=== PATIENT | female | born 1985 | race Caucasian/White ===

== ENCOUNTER 2017-08-23 17:58 | Inpatient (IN) ==
[2017-08-23 18:27] LABS: Bilirubin,Urine Small (Negative); Blood,Urine Large (Negative); Clarity,Urine Turbid (Clear); Glucose,Urine (UA) Normal (Normal); Ketones,Urine 40 mg/dL (Negative); Leukocyte Esterase,Urine Moderate (Negative); Nitrite,Urine Positive (Negative); PH,Urine 5.5 pH Units (5.0-8.0); Protein,Urine 100 mg/dL (Neg-Trace); Specific Gravity,Urine 1.022 (1.010-1.025); Urobilinogen,Urine Normal (Normal)
[2017-08-23 18:33] LABS: Bacteria,Urine Many per hpf (None-Few); RBC,Urine TNTC per hpf (0-3); Squamous Epithelial Cell,Urine Many per lpf (None-Few); WBC,Urine TNTC per hpf (0-3)
[2017-08-23 18:35] LABS: Color,Urine Dark Yellow (Yellow)
[2017-08-23 18:48] LABS: Mucus,Urine Moderate (Few)
[2017-08-23 18:55] LABS: Basophils % 0.2 %; Mean Platelet Volume 9.8 fL (9.4-12.4)
[2017-08-23 18:56] LABS: Basophils # 0.1 K/mcL (0.0-0.2); Hematocrit 39.6 % (35.3-44.9); Hemoglobin 13.2 g/dL (11.5-15.4); Immature Granulocytes % 0.8 % (0-4); Lymphocytes # 1.1 K/mcL (0.6-4.6); Lymphocytes % 3.9 %; Mean Corpuscular HGB Conc 33.3 g/dL (31.6-35.5); Monocytes % 7.1 %; Platelet Count 250 K/mcL (140-400); Red Cell Distribution Width 12.3 % (11.5-14.5)
[2017-08-23] MEDS ORDERED: 0.9 % Sodium Chloride 1,000 ML IVC ONE (19:07)
[2017-08-23 19:23] LABS: Alanine Aminotransferase 21 Units/L (7-52); Albumin 4.1 g/dL (3.5-5.7); Albumin/Globulin Ratio 1.2 (1.1-2.2); Alkaline Phosphatase 75 Units/L (34-104); Amylase 17 Units/L (29-103); Aspartate Amino Transferase 16 Units/L (13-39); BUN/Creatinine Ratio 15 (6-26); Bilirubin,Direct 0.4 mg/dL (0.0-0.2); Bilirubin,Indirect 0.7 mg/dL (0.0-1.2); Bilirubin,Total 1.1 mg/dL (0.3-1.0); Blood Urea Nitrogen 15 mg/dL (6-20); Calcium 9.7 mg/dL (8.6-10.3); Carbon Dioxide 22 mEq/L (23-29); Chloride 103 mEq/L (98-107); Globulin 3.3 g/dL (2.4-3.5); Glucose 125 mg/dL (70-105); Lipase 10 Units/L (11-82); Osmolality,Calculated 280 (280-300); Sodium 134 mEq/L (136-145); Total Protein 7.4 g/dL (6.4-8.9); eGFR For African Americans > 60 (> 60); eGFR For Non-African Americans > 60 (> 60)
[2017-08-23] MEDS ORDERED: cefTRIAXone 1,000 MG in Water for inj. (sterile) 20 ML 10 ML IVP ONE (19:35)
--- NOTE | 2017-08-23 19:39 | Emergency Department Note ---
Disposition Clinical Impression: Pyelonephritis Disposition: Admitted As Inpatient Condition: Fair Time of Disposition: 21:39 Abdominal Pain HPI - General Chief Complaint: ED Abdominal Pain Stated Complaint: ABD PAIN Time Seen by Provider: 08/23/17 18:52 Source: patient Mode of arrival: ambulatory Limitations: no limitations Nursing Notes Reviewed: Yes Vital Signs Reviewed: Yes - History of Present Illness HPI Narrative: Patient is a 31-year-old female who presents to [facility] ED with chief complaint of left-sided flank pain and abdominal pain. States her symptoms started yesterday evening. States she has had a history of kidney stones in the past and they have all been able to pass on their own. States she did spike a fever. Denies any difficulty with urination. Has had some nausea with an episode of vomiting. No chest pain, difficulty breathing, problems with urination or bowel movements. Patient is sexually active and states her and her are trying to get . States she is not due for a menstrual period for another 5 days. Pt Subjective Complaint: abdominal pain, flank pain Onset (ago): hour(s) Consistency: Worsening Location: L flank Pain Severity: severe Pain Scale: 8 Quality: aching Radiation: none Migration to: no migration - Related Data Home Medications Medication Instructions Recorded Confirmed Tek595/Iron Car/FA/Om3/Dha/Epa 1 each PO DAILY 08/23/17 08/23/17 [One-A-Day 1 Dha Sfgl] Allergies Allergy/AdvReac Type Severity Reaction Status Date / Time No Known Allergies Allergy Verified 05/27/15 10:22 All systems ED: reviewed and negative except as stated. Abdominal Pain PMH - Past Medical History Medical history: Reports: kidney stones, migraine Female Surgical History: Reports: no surgical history Psychiatric history: Reports: no psych history - Social History Smoking status: Never smoker Alcohol use: Reports: rarely Drug use: Reports: none Physical Exam - General Limitations: no limitations General appearance: alert - Head Head exam: atraumatic, normocephalic, normal inspection - Eye Eye exam: Present: normal appearance, EOMI - ENT ENT exam: normal exam, normal oropharynx, mucous membranes moist - Neck Neck exam: Present: normal inspection, full ROM, trachea midline - Chest Chest inspection: Present: normal inspection, symmetric chest wall rise - Respiratory Respiratory exam: Present: normal lung sounds bilaterally - Cardiovascular Cardiovascular exam: Present: normal rhythm, tachycardia - Abdominal Exam Abdominal exam: Present: soft, tenderness Abdominal tenderness: Present: LLQ, moderate - Extremities Exam Extremities exam: Present: normal inspection, full ROM. Absent: tenderness, pedal edema - Back Exam Back exam: Present: normal inspection, full ROM, CVA tenderness (L) - Neurological Exam Neurological exam: Present: alert, oriented X3 - Psychiatric Psychiatric exam: Present: normal affect, normal mood - Skin Skin exam: Present: warm, dry, intact, normal color Course Course Narrative: Patient seen and examined. Patient with left-sided and left flank pain. History of renal stones. We will get basic lab work, urine analysis, urine . We ended up ordering a serum to make sure there were no signs of since she would be very early on. It was negative. CT abdomen and pelvis ordered without contrast. - Reevaluation(s) Reevaluation #1: Urinalysis shows urinary tract infection. Urine analysis shows signs of a recently passed stone. She also has a large renal stone that I measured as 18 x [address] scan. It is located in the renal pelvis and is not obstructing at this time. Patient's white blood cell count is 20,000. We will continue fluid and antibiotics and admit. Discussed with patient and family members were in agreement. Time: 21:29 Reevaluation #2: Discussed with hospitalist who has accepted patient for admission. He would like a set of blood cultures and a lactate ordered. This has been added. Time: 21:39 Vital Signs Temperature 99.8 F H 08/23/17 18:04 Pulse Rate 128 08/23/17 18:04 Respiratory Rate 22 08/23/17 18:04 Blood Pressure 100/69 08/23/17 18:04 O2 Sat by Pulse Oximetry 96 08/23/17 18:04 Temperature 99.1 F 08/23/17 22:02 Pulse Rate 128 08/23/17 18:04 Respiratory Rate 20 08/23/17 22:02 Blood Pressure 108/65 08/23/17 22:02 O2 Sat by Pulse Oximetry 96 08/23/17 18:04 Oxygen Delivery Oxygen Delivery Room Air Abdominal Pain - Medical Records Medical records reviewed: Yes I reviewed the patient's medical records. - Lab Data Lab results reviewed: Yes I reviewed the patient's lab results. Result diagrams: 08/23/17 18:09 08/23/17 18:09 Lab Results 08/23/17 08/23/17 08/23/17 Range/Units 18:04 18:09 18:09 WBC 28.4 H (4.3-11.1) K/mcL RBC 4.40 (3.82-4.97) M/mcL Hgb 13.2 (11.5-15.4) g/dL Hct 39.6 (35.3-44.9) % MCV 90.0 (83.0-100.0) fL MCH 30.0 (28.0-33.3) pg MCHC 33.3 (31.6-35.5) g/dL RDW 12.3 (11.5-14.5) % Plt Count 250 (140-400) K/mcL MPV 9.8 (9.4-12.4) fL Immature Gran % 0.8 (0-4) % Seg Neutrophils % 88.0 % Lymphocytes % 3.9 % Monocytes % 7.1 % Eosinophils % 0.0 % Basophils % 0.2 % Neutrophils # 25.0 H (1.6-8.9) K/mcL Lymphocytes # 1.1 (0.6-4.6) K/mcL Monocytes # 2.0 H (0.0-1.3) K/mcL Eosinophils # 0.0 (0.0-0.6) K/mcL Basophils # 0.1 (0.0-0.2) K/mcL Reactive Lymphocytes Present A (Not Present) Toxic Granulation Present A (Not Present) Platelet Estimate Normal (Normal) Sodium 134 L (136-145) mEq/L Potassium 4.0 (3.5-5.1) mEq/L Chloride 103 (98-107) mEq/L Carbon Dioxide 22 L (23-29) mEq/L BUN 15 (6-20) mg/dL Creatinine 1.01 (0.60-1.20) mg/dL Est GFR ( Amer) > 60 (> 60) Est GFR (Non-Af Amer) > 60 (> 60) BUN/Creatinine Ratio 15 (6-26) Glucose 125 H (70-105) mg/dL Calculated Osmolality 280 (280-300) Calcium 9.7 (8.6-10.3) mg/dL Total Bilirubin 1.1 H (0.3-1.0) mg/dL Direct Bilirubin 0.4 H (0.0-0.2) mg/dL Indirect Bilirubin 0.7 (0.0-1.2) mg/dL AST 16 (13-39) Units/L ALT 21 (7-52) Units/L Alkaline Phosphatase 75 (34-104) Units/L Serum Total Protein 7.4 (6.4-8.9) g/dL Albumin 4.1 (3.5-5.7) g/dL Globulin 3.3 (2.4-3.5) g/dL Albumin/Globulin Ratio 1.2 (1.1-2.2) Amylase 17 L (29-103) Units/L Lipase 10 L (11-82) Units/L Serum , Qual (Negative) Urine Color Dark Yellow (Yellow) Urine Clarity Turbid A (Clear) Urine pH 5.5 (5.0-8.0) pH Units Ur Specific [place] 1.022 (1.010-1.025) Urine Protein 100 H (Neg-Trace) mg/dL Urine Glucose (UA) Normal (Normal) mg/dL Urine Ketones 40 H (Negative) mg/dL Urine Blood Large H (Negative) Urine Nitrite Positive A (Negative) Urine Bilirubin Small H (Negative) Urine Urobilinogen Normal (Normal) mg/dL Ur Leukocyte Esterase Moderate H (Negative) Urine Microscopic RBC TNTC H (0-3) per hpf Urine Microscopic WBC TNTC H (0-3) per hpf Ur Squamous Epith Cells Many H (None-Few) per lpf Urine Bacteria Many H (None-Few) per hpf Urine Mucus Moderate H (Few) Ur Culture Indicated? NO. (NO) 08/23/17 Range/Units 19:21 WBC (4.3-11.1) K/mcL RBC (3.82-4.97) M/mcL Hgb (11.5-15.4) g/dL Hct (35.3-44.9) % MCV (83.0-100.0) fL MCH (28.0-33.3) pg MCHC (31.6-35.5) g/dL RDW (11.5-14.5) % Plt Count (140-400) K/mcL MPV (9.4-12.4) fL Immature Gran % (0-4) % Seg Neutrophils % % Lymphocytes % % Monocytes % % Eosinophils % % Basophils % % Neutrophils # (1.6-8.9) K/mcL Lymphocytes # (0.6-4.6) K/mcL Monocytes # (0.0-1.3) K/mcL Eosinophils # (0.0-0.6) K/mcL Basophils # (0.0-0.2) K/mcL Reactive Lymphocytes (Not Present) Toxic Granulation (Not Present) Platelet Estimate (Normal) Sodium (136-145) mEq/L Potassium (3.5-5.1) mEq/L Chloride (98-107) mEq/L Carbon Dioxide (23-29) mEq/L BUN (6-20) mg/dL Creatinine (0.60-1.20) mg/dL Est GFR ( Amer) (> 60) Est GFR (Non-Af Amer) (> 60) BUN/Creatinine Ratio (6-26) Glucose (70-105) mg/dL Calculated Osmolality (280-300) Calcium (8.6-10.3) mg/dL Total Bilirubin (0.3-1.0) mg/dL Direct Bilirubin (0.0-0.2) mg/dL Indirect Bilirubin (0.0-1.2) mg/dL AST (13-39) Units/L ALT (7-52) Units/L Alkaline Phosphatase (34-104) Units/L Serum Total Protein (6.4-8.9) g/dL Albumin (3.5-5.7) g/dL Globulin (2.4-3.5) g/dL Albumin/Globulin Ratio (1.1-2.2) Amylase (29-103) Units/L Lipase (11-82) Units/L Serum , Qual Negative (Negative) Urine Color (Yellow) Urine Clarity (Clear) Urine pH (5.0-8.0) pH Units Ur Specific [place] (1.010-1.025) Urine Protein (Neg-Trace) mg/dL Urine Glucose (UA) (Normal) mg/dL Urine Ketones (Negative) mg/dL Urine Blood (Negative) Urine Nitrite (Negative) Urine Bilirubin (Negative) Urine Urobilinogen (Normal) mg/dL Ur Leukocyte Esterase (Negative) Urine Microscopic RBC (0-3) per hpf Urine Microscopic WBC (0-3) per hpf Ur Squamous Epith Cells (None-Few) per lpf Urine Bacteria (None-Few) per hpf Urine Mucus (Few) Ur Culture Indicated? (NO) - Radiology Data Radiology results reviewed: Yes I reviewed the patient's radiology results. Abdomen/Pelvis CT 08/23/17 20:09 IMPRESSION: Mild left-sided hydronephrosis with asymmetric enlargement of the left kidney and surrounding inflammatory change. No obstructing stone detected. Differential diagnosis includes a recently passed stone. Superimposed pyelonephritis not excluded. Trace pelvic free fluid with suggestion of a cyst in the left ovary. D/ / Adryan Love MD / Adryan Love MD Interpreting Provider: Adryan Love MD Attestation Statement - Attestation Attestation: I examined this patient and my medical decision-making was reviewed with the Resident Physician, Dr. Musa. I agree with the documented findings, disposition and treatment plan as described except to the extent set forth below. Patient is a 31-year-old white female with a history of prior kidney stones who presents to the emergency department today with a symptoms of left flank pain with left lower quadrant abdominal pain associated with nausea and vomiting and reported fevers at home that began last night. Patient denies any urinary symptoms and no upper respiratory symptoms. Patient denies any EXPERIMENTAL MECHANIC symptoms vaginal discharge or abnormal vaginal bleeding. I agree with pt's Pe findings as documented. Patient was tachycardic on arrival. Patient was started on IV fluids, pain meds and antiemetics, laboratory values were drawn and sent including urine cultures and she was sent for CT scanning to rule out obstructive stone. Patient with significantly elevation in white count with left shift, urinalysis shows urinary tract infection. Patient's vital signs improved following IV fluid administration and symptoms improved with medication. CT scan shows changes around the left kidney consistent with acute pyelonephritis no currently passing stone but does have a large renal stone in the left kidney. Results were discussed with the patient and patient agrees to admission to the hospital for ongoing IV fluids and antibiotic therapy. IV antibiotics were initiated in the ED and patient remained hemodynamically stable throughout her ED course.
[2017-08-23 19:42] LABS: Toxic Granulation Present (Not Present)
[2017-08-23 19:43] LABS: Platelet Estimate Normal (Normal); Reactive Lymphocytes Present (Not Present)
[2017-08-23] MEDS ORDERED: Ketorolac 15 MG/ML VIAL IVP ONE (20:09)
[2017-08-23] MEDS ORDERED: Naloxone 0.4 MG/ML INJ IVP PRN (21:41)
[2017-08-23] MEDS ORDERED: Acetaminophen 325 MG TABLET PO PRN (21:41)
[2017-08-23] MEDS ORDERED: *HR* HYDROcodone/Acet 5/325 mg TABLET PO PRN (21:41)
--- NOTE | 2017-08-23 22:08 | Internal Med History&Physical ---
Date of Encounter: 08/23/17 Time of Encounter: 22:05 Internal Medicine - H&P: HPI Chief complaint: Abdominal pain Admitted From: Emergency Dept Plans for Post Hospital Care: Home (Abdominal pain) History of present illness: Ms. Cortés is a 31 year old female who has no past medical history who presents to [facility] ED with chief complaint of left-sided flank pain and abdominal pain. She also reports nausea vomiting since yesterday night. She had fever at home up to 102.9. She complained of left flank pain throughout the day. Upon presentation to the emergency department she was tachycardic and borderline hypotensive. UA was positive. She had leukocytosis. Imaging studies showed mild left-sided hydronephrosis with asymmetric enlargement of the left kidney and surrounding inflammatory changes. This was suspected to have been findings consistent with a recently passed stone versus pyelonephritis. The patient also has a large stone in the left renal pelvis although dimensions of this are not documented. I spoke to the ER staff who measured to be 18 mm x 11 mm. The patient denies any headache, blurry vision, chest pain, shortness of breath, constipation, diarrhea, neurological symptoms. Patient was given IV fluids and ceftriaxone in the ED. She received Toradol as well. Past Med Surg Social Fam HX - Past Medical History Medical history: kidney stones, migraine Psychiatric history: no psych history - Social History Smoking Status: Never smoker Smokeless Tobacco Status: No Alcohol use: rarely Drug use: none Internal Medicine - H&P: Meds Hpt033/Iron Car/FA/Om3/Dha/Epa [One-A-Day 1 Dha Sfgl] 1 each PO DAILY 08/23/17 [History] 3 Allergy/AdvReac Type Severity Reaction Status Date / Time No Known Allergies Allergy Verified 05/27/15 10:22 All Systems PM: A 10-system review of systems was performed and is negative for pertinent findings except as documented above in the HPI. Review of systems: All systems reviewed are negative except as mentioned above - Constitutional Vitals: Temp Pulse Resp BP Pulse Ox 99.1 F 128 20 108/65 96 08/23/17 22:02 08/23/17 18:04 08/23/17 22:02 08/23/17 22:02 08/23/17 18:04 Exam: GEN: NAD HEENT: AT, NC, No cyanosis, oral mucosa is moist, No JVD Lymphatics: No lymphadenoapthy Eyes: Extrocular muscles intact, anicteric CVS:RRR. S1, S2, No m/r/g RESP: CTAB ABD: Soft, NT, ND, +BS EXT: No edema, No rashes, 2+ DP. Left CVA tenderness NEURO: Nonfocal, CN II-XII intact, No focal motor or sensory deficits Psych: Cooperative, Not anxious or depressed Internal Med - H&P Results - Labs CBC & Chem 7: 08/23/17 18:09 08/23/17 18:09 - Assessment and plan (1) Kidney stone Current Visit: Yes Status: Acute Assessment and plan: Pain control. IV fluid. Consult urology. (2) Pyelonephritis Current Visit: Yes Status: Acute Assessment and plan: Continue ceftriaxone for now. Unfortunately blood cultures were collected after antibiotics. Check lactic acid. Continue IV fluids. Follow up on urine cultures. (3) DVT prophylaxis Current Visit: Yes Status: Acute Assessment and plan: Heparin subcutaneous - Time Spent With Patient Total time spent is greater than 50% in coordination of care (as documented) at patient's floor/unit and/or counseling patient:
[2017-08-23] MEDS ORDERED: Ondansetron 4 MG/2 ML VIAL IVP PRN (22:34)
[2017-08-23] MEDS: *HR* Heparin 5,000 UNIT/ML VIAL SQ SCH (22:40)
[2017-08-23] MEDS: 0.9 % Sodium Chloride 1,000 ML IVC SCH (22:40)
[2017-08-24] MEDS: *HR* Heparin 5,000 UNIT/ML VIAL SQ SCH ×3 (05:14→21:35)
[2017-08-24] MEDS: 0.9 % Sodium Chloride 1,000 ML IVC SCH ×3 (05:24→21:38)
[2017-08-24 06:13] LABS: Basophils # 0.1 K/mcL (0.0-0.2); Basophils % 0.2 %; Hematocrit 33.7 % (35.3-44.9); Lymphocytes # 1.3 K/mcL (0.6-4.6); Lymphocytes % 6.1 %; Mean Corpuscular HGB Conc 32.9 g/dL (31.6-35.5); Mean Corpuscular Hemoglobin 30.1 pg (28.0-33.3); Mean Corpuscular Volume 91.3 fL (83.0-100.0); Monocytes # 1.5 K/mcL (0.0-1.3); Monocytes % 6.7 %; Neutrophils # 18.6 K/mcL (1.6-8.9); Platelet Count 183 K/mcL (140-400); Red Blood Count 3.69 M/mcL (3.82-4.97); Red Cell Distribution Width 12.2 % (11.5-14.5)
[2017-08-24 06:21] LABS: BUN/Creatinine Ratio 18 (6-26); Blood Urea Nitrogen 15 mg/dL (6-20); Calcium 8.3 mg/dL (8.6-10.3); Carbon Dioxide 20 mEq/L (23-29); Chloride 111 mEq/L (98-107); Glucose 98 mg/dL (70-105); Magnesium 1.7 mg/dL (1.6-2.6); Osmolality,Calculated 283 (280-300); Potassium 3.2 mEq/L (3.5-5.1); Sodium 136 mEq/L (136-145); eGFR For African Americans > 60 (> 60); eGFR For Non-African Americans > 60 (> 60)
[2017-08-24 06:23] LABS: Hemoglobin 11.1 g/dL (11.5-15.4)
--- NOTE | 2017-08-24 07:07 | Urology - Consult Note ---
Date of Encounter: 08/24/17 Time of Encounter: 07:05 - Assessment and Plan (1) Kidney stone Current Visit: Yes Status: Acute Assessment and plan: 31-year-old woman with a left renal stone, hydronephrosis, and pyelonephritis was admitted for IV antibiotic. I reviewed the CT scan with her. I recommend proceeding with a cystoscopy and left ureteral stent placement. I informed her of the risks of the surgery which included but are not limited to bleeding, infection, injury to other structures, need for further procedures, need for nephrostomy tube, need for open repair, stent irritation, and the risk of anesthesia. She is willing to proceed. (2) Pyelonephritis Current Visit: Yes Status: Acute Urology CN:HPI Consult date: 08/24/17 Reason for consult Urology: Other (uti, nephrolithiasis) History of present illness: 31-year-old woman presented with a 2 day history of flank and fevers. She noted nausea and emesis. The pain was sharp and radiated to the left groin. She reports having a history of kidney stones, but denies any surgery for them. She came to the emergency department. A CT scan showed a stone within the left renal pelvis. She was admitted and given IV antibiotic. She did have a temperature to 101.3 degrees overnight. She has been nothing by mouth. Past Med Surg Social Fam HX - Past Medical History Medical history: kidney stones, migraine Psychiatric history: no psych history - Past Surgical History Surgical History: no surgical history - Social History Smoking Status: Never smoker Smokeless Tobacco Status: No Alcohol use: rarely Drug use: none - Family History Mother Hx Family Genitourinary Disorders: No (No history of stones) Medications and Allergies Xly636/Iron Car/FA/Om3/Dha/Epa [One-A-Day 1 Dha Sfgl] 1 each PO DAILY 08/23/17 [History] 3 Allergy/AdvReac Type Severity Reaction Status Date / Time No Known Allergies Allergy Verified 05/27/15 10:22 Review of Systems - Constitutional chills, fever(s) - EENT Nose, mouth and throat: no dizziness - Cardiovascular no chest pain - Respiratory no dyspnea - Gastrointestinal nausea, vomiting - Genitourinary Genitourinary: flank pain, no hematuria - Musculoskeletal no back pain - Integumentary no erythema, no rash - Neurological no weakness - Psychiatric no suicidal ideation - Hematologic/Lymphatic no easy bleeding - Allergic/Immunologic no wheezing Exam Initial Vital Signs Temp Pulse Resp BP Pulse Ox 99.8 F H 128 22 100/69 96 08/23/17 18:04 08/23/17 18:04 08/23/17 18:04 08/23/17 18:04 08/23/17 18:04 - General physical appearance Present: well developed, well nourished, no distress - Eyes Absent: icteric - ENT Present: normal nares - Neck Present: trachea midline - Respiratory Present: normal respiratory effort - Cardiovascular Cardiovascular exam IM: RRR - Abdomen Abdomen: Present: soft - Integumentary Present: no rash - Neurologic Present: normal coordination - Musculoskeletal Present: other (normal strength) Urology Results - Labs 08/24/17 05:44 08/24/17 05:44 Abnormal lab results WBC 21.7 K/mcL (4.3-11.1) H 08/24/17 05:44 RBC 3.69 M/mcL (3.82-4.97) L 08/24/17 05:44 Hgb 11.1 g/dL (11.5-15.4) L D 08/24/17 05:44 Hct 33.7 % (35.3-44.9) L 08/24/17 05:44 Neutrophils # 18.6 K/mcL (1.6-8.9) H 08/24/17 05:44 Monocytes # 1.5 K/mcL (0.0-1.3) H 08/24/17 05:44 Reactive Lymphocytes Present (Not Present) A 08/23/17 18:09 Toxic Granulation Present (Not Present) A 08/23/17 18:09 Potassium 3.2 mEq/L (3.5-5.1) L 08/24/17 05:44 Chloride 111 mEq/L (98-107) H 08/24/17 05:44 Carbon Dioxide 20 mEq/L (23-29) L 08/24/17 05:44 Calcium 8.3 mg/dL (8.6-10.3) L 08/24/17 05:44 Total Bilirubin 1.1 mg/dL (0.3-1.0) H 08/23/17 18:09 Direct Bilirubin 0.4 mg/dL (0.0-0.2) H 08/23/17 18:09 Amylase 17 Units/L (29-103) L 08/23/17 18:09 Lipase 10 Units/L (11-82) L 08/23/17 18:09 Urine Clarity Turbid (Clear) A 08/23/17 18:04 Urine Protein 100 mg/dL (Neg-Trace) H 08/23/17 18:04 Urine Ketones 40 mg/dL (Negative) H 08/23/17 18:04 Urine Blood Large (Negative) H 08/23/17 18:04 Urine Nitrite Positive (Negative) A 08/23/17 18:04 Urine Bilirubin Small (Negative) H 08/23/17 18:04 Ur Leukocyte Esterase Moderate (Negative) H 08/23/17 18:04 Urine Microscopic RBC TNTC per hpf (0-3) H 08/23/17 18:04 Urine Microscopic WBC TNTC per hpf (0-3) H 08/23/17 18:04 Ur Squamous Epith Cells Many per lpf (None-Few) H 08/23/17 18:04 Urine Bacteria Many per hpf (None-Few) H 08/23/17 18:04 Urine Mucus Moderate (Few) H 08/23/17 18:04 Diabetes panel 08/24/17 Range/Units 05:44 Sodium 136 (136-145) mEq/L Potassium 3.2 L (3.5-5.1) mEq/L Chloride 111 H (98-107) mEq/L Carbon Dioxide 20 L (23-29) mEq/L BUN 15 (6-20) mg/dL Creatinine 0.83 (0.60-1.20) mg/dL Glucose 98 (70-105) mg/dL Calcium 8.3 L (8.6-10.3) mg/dL Calcium panel 08/24/17 Range/Units 05:44 Calcium 8.3 L (8.6-10.3) mg/dL Pituitary panel 08/24/17 Range/Units 05:44 Sodium 136 (136-145) mEq/L Potassium 3.2 L (3.5-5.1) mEq/L Chloride 111 H (98-107) mEq/L Carbon Dioxide 20 L (23-29) mEq/L BUN 15 (6-20) mg/dL Creatinine 0.83 (0.60-1.20) mg/dL Glucose 98 (70-105) mg/dL Calcium 8.3 L (8.6-10.3) mg/dL Adrenal panel 08/24/17 Range/Units 05:44 Sodium 136 (136-145) mEq/L Potassium 3.2 L (3.5-5.1) mEq/L Chloride 111 H (98-107) mEq/L Carbon Dioxide 20 L (23-29) mEq/L BUN 15 (6-20) mg/dL Creatinine 0.83 (0.60-1.20) mg/dL Glucose 98 (70-105) mg/dL Calcium 8.3 L (8.6-10.3) mg/dL All other labs normal. - Imaging CT scan - abdomen: report reviewed, image reviewed CT scan - pelvis: report reviewed, image reviewed Consult Discharge Plan - Plan Referrals: Casandra Ramey DO [Primary Care Provider] -
[2017-08-24] MEDS ORDERED: Isovue-300 50 ML VIAL IVP ONE (07:24)
--- NOTE | 2017-08-24 07:39 | Anesthesia Evaluation PreOp ---
Date of Encounter: 08/24/17 Time of Encounter: 07:37 - Past History Planned Operation: cystoscopy, USE Cardiac History: Denies any Significant Hx Pulmonary History: Denies Any Significant HX PRODUCTION ADMINISTRATOR History: Other (migraines) Other Medical History: Other (Kidney stones) Anesthesia History: Past Anesthesia (none) : No Alcohol Use: rarely Drug use: none Medications and Allergies Kiy726/Iron Car/FA/Om3/Dha/Epa [One-A-Day 1 Dha Sfgl] 1 each PO DAILY 08/23/17 [History] 3 Allergy/AdvReac Type Severity Reaction Status Date / Time No Known Allergies Allergy Verified 05/27/15 10:22 - Meds/Allergy Pre-op Review Medications Reviewed: Yes Allergies Reviewed: Yes Beta Blockers on Current Med List: No Anesthesia Results - Labs 08/24/17 05:44 08/24/17 05:44 Laboratory Tests 08/23/17 08/24/17 08/24/17 19:21 05:44 05:44 WBC 21.7 H Hgb 11.1 L D Hct 33.7 L Sodium 136 Potassium 3.2 L Serum , Qual Negative Anesthesia Exam Selected Entries 08/24/17 03:16 Temperature 101.3 F H Pulse Rate 128 Respiratory Rate 17 Blood Pressure 86/64 O2 Sat by Pulse Oximetry 97 Oxygen Delivery Method Room Air Weight: 98kg NPO (# of Hours): 8 - HEENT Pupil (Motor): EOMI Mallampati: II Teeth: Normal Oral Opening: Greater than 3 - PRODUCTION ADMINISTRATOR LOC: Oriented PRODUCTION ADMINISTRATOR Motor: Normal RUE, Normal LUE, Normal RLE, Normal LLE, Normal Face PRODUCTION ADMINISTRATOR Sensory: Normal: RUE, LUE, RLE, LLE, Face - Cardiac Rhythm: Regular Murmur: None - Pulmonary Breath Sounds: bilateral Clear Respiratory Effort: Symmetrical Anesthesia Assess/Plan ASA Score: 2, E Modified [place] Scale for Level of Consciousness: Cooperative, oriented, and tranquil Anesthetic Plan: General Monitoring Plan: Standard Monitors Recovery Plan: PACU (agrees to GA)
[2017-08-24] MEDS ORDERED: *HR* Midazolam HCl 2 MG/2 ML VIAL ONE (08:05)
[2017-08-24] MEDS ORDERED: *HR* Propofol 200 MG/20 ML VIAL IVP ONE (08:05)
[2017-08-24] MEDS ORDERED: *HR* FentaNYL (PF) 100 MCG/2 ML VIAL ONE (08:05)
[2017-08-24] MEDS ORDERED: Ondansetron 4 MG/2 ML VIAL ONE (08:06)
[2017-08-24] MEDS ORDERED: Dexamethasone 4 MG/ML VIAL ONE (08:06)
[2017-08-24] MEDS ORDERED: *HR* HYDROcodone/Acet 7.5/325 mg TABLET PO PRN ×2 (08:15→08:30)
--- NOTE | 2017-08-24 08:17 | Operative Note ---
Date of procedure: 08/24/17 Pre-op diagnosis: Left ureteral stone, and uti Post-op diagnosis: same Procedure: Cystoscopy, left renal stent placement. Implants: 6 Azer[place] x 26cm JJ stent Complications: none Anesthesia: ALLYNA Surgeon: Jaziel Arredondo Was there an enrichment assistant present: No Estimated blood loss (cc): 0 Specimen: none Condition: stable Disposition: PACU Procedure in Detail: Indications: Raine is a 31-year-old woman who has a history of nephrolithiasis. She had a CT which showed a left UPJ stone and hydronephrosis. She had a fever overnight. She elected to undergo a cystoscopy and left ureteral stent placement. She was aware of the risks of the procedure including but not limited to bleeding, infection, injury to other structures, need for further procedures, stent irritation, need for nephrostomy tube, need for open repair, risks otherwise unforeseen, and the risk of anesthesia. She is willing to proceed. Procedure in Detail: After informed consent was obtained the patient was brought back to the operating room and placed in supine position. A time out was performed. General anesthesia was administered and an endotracheal tube was placed. She was then placed in the lithotomy position. She was prepped and draped in the usual sterile fashion. Cystoscopy was performed. The anterior urethra was normal. There was no evidence of bladder tumors. The ureteral orifices were in the normal orthotopic position. There was no duplication of the ureteral orifices. The Zip wire was placed in the left ureteral orifice. The wire was able to move past the stone and brought into the kidney under fluoroscopic guidance. A 6 [place] by 26cm JJ stent was then placed. The dangle strings were removed. The bladder was drained. The patient was then awakened from general anesthesia and brought to recovery room in good condition. All sponge, needle, and instrument counts were correct.
[2017-08-24] MEDS ORDERED: Naloxone 0.4 MG/ML INJ IVP PRN (08:30)
--- NOTE | 2017-08-24 08:54 | Anesthesia Evaluation Post Op ---
Date of Encounter: 08/24/17 Time of Encounter: 08:50 - Vital Signs Vital Signs: Vital Signs/O2 Sat/Glucose, Most Current Temp Pulse Resp BP Pulse Ox 08/24/17 08:50 100.6 F H 117 16 111/74 99 08/24/17 08:40 117 18 103/70 99 08/24/17 08:30 118 19 101/72 99 08/24/17 08:20 100.0 F H 128 16 100/58 96 08/24/17 05:13 98.8 F - Lungs Lungs: Clear Ascult./Percussion - Airway Airway: Non-obstructed - Cardiovascular Regular Rate - Mental Status Mental Status: Alert & Oriented, Answers Appropriately - Pain Pain Scale: 0 - Nausea Vomiting Nausea Vomiting: Not Present - Hydration Hydration: Ice chips - Discharge PostOp Status: Discharge Patient to home
[2017-08-24] MEDS ORDERED: cefTRIAXone 1,000 MG in Water for inj. (sterile) 20 ML 10 ML IVP SCH ×2 (09:00)
--- NOTE | 2017-08-24 09:04 | Internal Med Progress Note ---
Date of Encounter: 08/24/17 Time of Encounter: 10:05 - Assessment and plan (1) Sepsis Current Visit: Yes Status: Acute Assessment and plan: Patient with fever T 100.6, T max 101.3 Tachycardia. UA with evidence of UTI-complicated with renal stone and pyelonephritis Blood and urine culture pending Increase Ceftriaxone to 2g daily Continue IVF hydration Risk of progression to severe sepsis and septic shock Zofran for n/v Pain control Qualifiers: Sepsis type: sepsis due to unspecified organism Qualified Code(s): A41.9 - Sepsis, unspecified organism (2) Pyelonephritis Current Visit: Yes Status: Acute Assessment and plan: See sepsis (3) Kidney stone Current Visit: Yes Status: Acute Assessment and plan: POD 1 s/p cystoscopy and left ureteral stent placement Continue IVF Continue pain control Urology following, recs appreciated (4) DVT prophylaxis Current Visit: Yes Status: Acute Assessment and plan: SQ heparin, ambulate - Time Spent With Patient Total time spent is greater than 50% in coordination of care (as documented) at patient's floor/unit and/or counseling patient: - Subjective Interval history: Seen and examined at bedside She is still having Left flank pain but reports some improvement She is still having nausea, no vomiting HEr urine is clear - Constitutional Vitals: Temp Pulse Resp BP Pulse Ox 100.6 F H 117 16 111/74 99 08/24/17 08:50 08/24/17 08:50 08/24/17 08:50 08/24/17 08:50 08/24/17 08:50 General appearance: Present: A&O X 3, pleasant, no acute distress, answers questions appropriately - Head Head exam: Present: atraumatic, normocephalic - Eye Eye exam: Present: PERRL, conjuntiva pink, sclera anicteric Pupils: Present: PERRL - Neck Neck exam general surgery: Present: supple, trachea midline. Absent: lymphadenopathy - Respiratory Respiratory exam: Present: CTAB. Absent: accessory muscle use, rales, rhonchi, wheezes - Cardiovascular Cardiovascular exam: Present: RRR, +S1, +S2. Absent: diastolic murmur, gallop, rubs, systolic murmur - GI/Abdominal GI/Abdominal exam: Present: normal bowel sounds, soft, no peritoneal signs. Absent: distended, tenderness - Extremities Exam Extremities exam: Present: warm, radial pulses palpable and symmetrical. Absent : calf tenderness, cyanotic, pedal edema - Back Exam Back exam: Present: CVA tenderness (L) - Neurological Exam Neurological exam: Present: alert, CN II-XII intact, oriented X3, no focal deficits. Absent: pronater drift, facial droop, speech deficit - Skin Skin exam: Present: dry, intact Internal Medicine: Result - Labs CBC & Chem 7: 08/24/17 05:44 08/24/17 05:44 Labs: Short CBC 08/24/17 Range/Units 05:44 WBC 21.7 H (4.3-11.1) K/mcL Hgb 11.1 L D (11.5-15.4) g/dL Hct 33.7 L (35.3-44.9) % Plt Count 183 (140-400) K/mcL Neutrophils # 18.6 H (1.6-8.9) K/mcL BMP 08/24/17 05:44 Sodium 136 Potassium 3.2 L Chloride 111 H Carbon Dioxide 20 L BUN 15 Creatinine 0.83 Glucose 98 Calcium 8.3 L - Impressions Impressions Fluoroscopy 08/24/17 08:00 IMPRESSION: Intraprocedural fluoroscopic spot images as above. See separate procedure report for more information. D/ /24/2017 08:46:40 Chevy Garcia MD / eliezer Interpreting Provider: Chevy Garcia MD [facility] X-Ray 08/24/17 08:00 IMPRESSION: Intraprocedural fluoroscopic spot images as above. See separate procedure report for more information. D/ /24/2017 08:46:40 Chevy Garcia MD / eliezer Interpreting Provider: Chevy Garcia MD Consult Discharge Plan - Plan Referrals: Casandra Ramey DO [Primary Care Provider] -
[2017-08-24] MEDS: cefTRIAXone 2,000 MG in Water for inj. (sterile) 20 ML 20 ML IVP SCH (15:31)
[2017-08-24] MEDS: Acetaminophen 325 MG TABLET PO PRN (21:42)
[2017-08-25] MEDS: *HR* HYDROcodone/Acet 5/325 mg TABLET PO PRN ×4 (01:20→22:04)
[2017-08-25] MEDS: 0.9 % Sodium Chloride 1,000 ML IVC SCH ×3 (01:20→10:19)
[2017-08-25] MEDS: *HR* Heparin 5,000 UNIT/ML VIAL SQ SCH ×3 (05:30→22:04)
[2017-08-25 05:40] LABS: Basophils % 0.2 %; Eosinophils % 0.1 %; Hematocrit 32.4 % (35.3-44.9); Hemoglobin 10.6 g/dL (11.5-15.4); Immature Granulocytes % 0.5 % (0-4); Lymphocytes # 1.5 K/mcL (0.6-4.6); Lymphocytes % 8.1 %; Mean Corpuscular HGB Conc 32.7 g/dL (31.6-35.5); Mean Corpuscular Hemoglobin 29.6 pg (28.0-33.3); Mean Corpuscular Volume 90.5 fL (83.0-100.0); Mean Platelet Volume 10.1 fL (9.4-12.4); Monocytes # 0.8 K/mcL (0.0-1.3); Monocytes % 4.5 %; Neutrophils # 16.1 K/mcL (1.6-8.9); Platelet Count 182 K/mcL (140-400); Red Blood Count 3.58 M/mcL (3.82-4.97); Red Cell Distribution Width 12.4 % (11.5-14.5); Segmented Neutrophils % 86.6 %
[2017-08-25 05:58] LABS: BUN/Creatinine Ratio 16 (6-26); Blood Urea Nitrogen 11 mg/dL (6-20); Calcium 8.1 mg/dL (8.6-10.3); Carbon Dioxide 20 mEq/L (23-29); Chloride 110 mEq/L (98-107); Glucose 102 mg/dL (70-105); Osmolality,Calculated 282 (280-300); Potassium 3.7 mEq/L (3.5-5.1); Sodium 136 mEq/L (136-145); eGFR For African Americans > 60 (> 60); eGFR For Non-African Americans > 60 (> 60)
--- NOTE | 2017-08-25 06:50 | Urology Progress Note ---
Date of Encounter: 08/25/17 Time of Encounter: 06:49 - Assessment and Plan (1) Kidney stone Current Visit: Yes Status: Acute Assessment and plan: s/p left ureteral stent placement. POD #1. 1. Continue IV abx and await urine cultures. 2. Anticipate left ureteroscopy as an outpatient once infection clears. (2) Pyelonephritis Current Visit: Yes Status: Acute Progress Note Narrative: Doing well. Pain improved. Voiding well. Urine culture is pending. Blood cultures were negative. Afebrile after procedure. Objective Initial Vital Signs Temp Pulse Resp BP Pulse Ox 99.8 F H 128 22 100/69 96 08/23/17 18:04 08/23/17 18:04 08/23/17 18:04 08/23/17 18:04 08/23/17 18:04 - General physical appearance Present: well developed, well nourished, no distress - Respiratory Present: normal respiratory effort - Abdomen Present: soft - Labs 08/25/17 05:20 08/25/17 05:20 Diabetes panel 08/25/17 Range/Units 05:20 Sodium 136 (136-145) mEq/L Potassium 3.7 (3.5-5.1) mEq/L Chloride 110 H (98-107) mEq/L Carbon Dioxide 20 L (23-29) mEq/L BUN 11 (6-20) mg/dL Creatinine 0.67 (0.60-1.20) mg/dL Glucose 102 (70-105) mg/dL Calcium 8.1 L (8.6-10.3) mg/dL Calcium panel 08/25/17 Range/Units 05:20 Calcium 8.1 L (8.6-10.3) mg/dL Pituitary panel 08/25/17 Range/Units 05:20 Sodium 136 (136-145) mEq/L Potassium 3.7 (3.5-5.1) mEq/L Chloride 110 H (98-107) mEq/L Carbon Dioxide 20 L (23-29) mEq/L BUN 11 (6-20) mg/dL Creatinine 0.67 (0.60-1.20) mg/dL Glucose 102 (70-105) mg/dL Calcium 8.1 L (8.6-10.3) mg/dL Adrenal panel 08/25/17 Range/Units 05:20 Sodium 136 (136-145) mEq/L Potassium 3.7 (3.5-5.1) mEq/L Chloride 110 H (98-107) mEq/L Carbon Dioxide 20 L (23-29) mEq/L BUN 11 (6-20) mg/dL Creatinine 0.67 (0.60-1.20) mg/dL Glucose 102 (70-105) mg/dL Calcium 8.1 L (8.6-10.3) mg/dL Consult Discharge Plan - Plan Referrals: Jaziel Arredondo MD [Partnered Physician] -
[2017-08-25] MEDS: cefTRIAXone 2,000 MG in Water for inj. (sterile) 20 ML 20 ML IVP SCH (10:18)
[2017-08-25] MEDS: Ondansetron 4 MG/2 ML VIAL IVP PRN ×2 (10:35→17:29)
--- NOTE | 2017-08-25 11:23 | Internal Med Progress Note ---
Date of Encounter: 08/25/17 Time of Encounter: 11:21 - Assessment and plan (1) Sepsis Current Visit: Yes Status: Acute Assessment and plan: Patient with fever T 100.6, T max 102 Tachycardia. UA with evidence of UTI-complicated with renal stone and pyelonephritis Blood culture no growth urine culture pending Continue Ceftriaxone to 2g daily Discontinue IVF, BP is stable Risk of progression to severe sepsis and septic shock Zofran for n/v Pain control Qualifiers: Sepsis type: sepsis due to unspecified organism Qualified Code(s): A41.9 - Sepsis, unspecified organism (2) Pyelonephritis Current Visit: Yes Status: Acute Assessment and plan: See sepsis (3) Kidney stone Current Visit: Yes Status: Acute Assessment and plan: POD 2 s/p cystoscopy and left ureteral stent placement Continue IVF Continue pain control Urology following, recs appreciated (4) DVT prophylaxis Current Visit: Yes Status: Acute Assessment and plan: SQ heparin, ambulate - Time Spent With Patient Total time spent is greater than 50% in coordination of care (as documented) at patient's floor/unit and/or counseling patient: - Subjective Interval history: Seen and examined at bedside with her sister who is RN She has no new complains she is still having fever, T max this morning, 102, however, WBC is improving. Urine is still dark, blood culture is negative, urine culture is pending - Constitutional Vitals: Temp Pulse Resp BP Pulse Ox 99.9 F H 86 18 130/70 96 08/25/17 10:57 08/25/17 10:57 08/25/17 10:57 08/25/17 10:57 08/25/17 10:57 General appearance: Present: A&O X 3, pleasant, no acute distress, answers questions appropriately - Head Head exam: Present: atraumatic, normocephalic - Eye Eye exam: Present: PERRL, conjuntiva pink, sclera anicteric Pupils: Present: PERRL - Neck Neck exam general surgery: Present: supple, trachea midline. Absent: lymphadenopathy - Respiratory Respiratory exam: Present: CTAB. Absent: accessory muscle use, rales, rhonchi, wheezes - GI/Abdominal GI/Abdominal exam: Present: normal bowel sounds, soft, no peritoneal signs. Absent: distended, tenderness - Extremities Exam Extremities exam: Present: warm, radial pulses palpable and symmetrical. Absent : calf tenderness, cyanotic, pedal edema - Back Exam Back exam: Present: CVA tenderness (L) (present, but improved from 08/24/17) - Neurological Exam Neurological exam: Present: alert, CN II-XII intact, oriented X3, no focal deficits. Absent: pronater drift, facial droop, speech deficit - Skin Skin exam: Present: dry, intact Internal Medicine: Result - Labs CBC & Chem 7: 08/25/17 05:20 08/25/17 05:20 Labs: Short CBC 08/25/17 Range/Units 05:20 WBC 18.6 H (4.3-11.1) K/mcL Hgb 10.6 L (11.5-15.4) g/dL Hct 32.4 L (35.3-44.9) % Plt Count 182 (140-400) K/mcL Neutrophils # 16.1 H (1.6-8.9) K/mcL BMP 08/25/17 05:20 Sodium 136 Potassium 3.7 Chloride 110 H Carbon Dioxide 20 L BUN 11 Creatinine 0.67 Glucose 102 Calcium 8.1 L - Impressions Impressions Fluoroscopy 08/24/17 08:00 IMPRESSION: Intraprocedural fluoroscopic spot images as above. See separate procedure report for more information. D/ : / 08/24/2017 08:46:40 Chevy Garcia MD / eliezer Interpreting Provider: Chevy Garcia MD X-Ray 08/24/17 08:00 IMPRESSION: Intraprocedural fluoroscopic spot images as above. See separate procedure report for more information. D/ : / 08/24/2017 08:46:40 Chevy Garcia MD / eliezer Interpreting Provider: Chevy Garcia MD Consult Discharge Plan - Plan Referrals: Jaziel Arredondo MD [Partnered Physician] -
[2017-08-25] MEDS: Acetaminophen 325 MG TABLET PO PRN (17:29)
[2017-08-26] MEDS: *HR* HYDROcodone/Acet 5/325 mg TABLET PO PRN ×2 (03:04→09:40)
[2017-08-26] MEDS: Ondansetron 4 MG/2 ML VIAL IVP PRN ×2 (03:04→15:50)
[2017-08-26] MEDS: Acetaminophen 325 MG TABLET PO PRN ×2 (04:32→15:50)
[2017-08-26] MEDS: *HR* Heparin 5,000 UNIT/ML VIAL SQ SCH ×3 (05:28→21:07)
[2017-08-26 06:18] LABS: Basophils % 0.3 %; Eosinophils % 0.3 %; Hematocrit 32.4 % (35.3-44.9); Hemoglobin 10.9 g/dL (11.5-15.4); Immature Granulocytes % 0.5 % (0-4); Lymphocytes # 1.5 K/mcL (0.6-4.6); Lymphocytes % 12.6 %; Mean Corpuscular HGB Conc 33.6 g/dL (31.6-35.5); Mean Corpuscular Hemoglobin 29.9 pg (28.0-33.3); Mean Corpuscular Volume 88.8 fL (83.0-100.0); Monocytes % 8.3 %; Neutrophils # 9.5 K/mcL (1.6-8.9); Platelet Count 199 K/mcL (140-400); Red Blood Count 3.65 M/mcL (3.82-4.97); Red Cell Distribution Width 12.5 % (11.5-14.5)
[2017-08-26 06:38] LABS: BUN/Creatinine Ratio 10 (6-26); Blood Urea Nitrogen 6 mg/dL (6-20); Calcium 8.4 mg/dL (8.6-10.3); Carbon Dioxide 22 mEq/L (23-29); Chloride 105 mEq/L (98-107); Glucose 120 mg/dL (70-105); Osmolality,Calculated 281 (280-300); Sodium 136 mEq/L (136-145); eGFR For African Americans > 60 (> 60); eGFR For Non-African Americans > 60 (> 60)
[2017-08-26] MEDS: cefTRIAXone 2,000 MG in Water for inj. (sterile) 20 ML 20 ML IVP SCH (09:31)
--- NOTE | 2017-08-26 10:02 | Urology Progress Note ---
Date of Encounter: 08/26/17 Time of Encounter: 10:01 - Assessment and Plan (1) Kidney stone Current Visit: Yes Status: Acute Assessment and plan: Postop day #2 status post left renal stent placement. 1. Continue antibiotics. 2. We will plan for outpatient ureteroscopic stone extraction. Urology will sign off. Please call with questions. (2) Pyelonephritis Current Visit: Yes Status: Acute Progress Note Narrative: Postop day #2 status post cystoscopy and left renal stent placement. She had some low-grade temperatures. Urine culture is growing out pansensitive Escherichia coli. She is feeling well today. Objective Initial Vital Signs Temp Pulse Resp BP Pulse Ox 99.8 F H 128 22 100/69 96 08/23/17 18:04 08/23/17 18:04 08/23/17 18:04 08/23/17 18:04 08/23/17 18:04 - General physical appearance Present: well developed, well nourished, no distress - Respiratory Present: normal respiratory effort - Abdomen Present: soft - Labs 08/26/17 06:01 08/26/17 06:01 Diabetes panel 08/26/17 Range/Units 06:01 Sodium 136 (136-145) mEq/L Potassium 3.0 L (3.5-5.1) mEq/L Chloride 105 (98-107) mEq/L Carbon Dioxide 22 L (23-29) mEq/L BUN 6 (6-20) mg/dL Creatinine 0.63 (0.60-1.20) mg/dL Glucose 120 H (70-105) mg/dL Calcium 8.4 L (8.6-10.3) mg/dL Calcium panel 08/26/17 Range/Units 06:01 Calcium 8.4 L (8.6-10.3) mg/dL Pituitary panel 08/26/17 Range/Units 06:01 Sodium 136 (136-145) mEq/L Potassium 3.0 L (3.5-5.1) mEq/L Chloride 105 (98-107) mEq/L Carbon Dioxide 22 L (23-29) mEq/L BUN 6 (6-20) mg/dL Creatinine 0.63 (0.60-1.20) mg/dL Glucose 120 H (70-105) mg/dL Calcium 8.4 L (8.6-10.3) mg/dL Adrenal panel 08/26/17 Range/Units 06:01 Sodium 136 (136-145) mEq/L Potassium 3.0 L (3.5-5.1) mEq/L Chloride 105 (98-107) mEq/L Carbon Dioxide 22 L (23-29) mEq/L BUN 6 (6-20) mg/dL Creatinine 0.63 (0.60-1.20) mg/dL Glucose 120 H (70-105) mg/dL Calcium 8.4 L (8.6-10.3) mg/dL Consult Discharge Plan - Plan Referrals: Jaziel Arredondo MD [Partnered Physician] -
--- NOTE | 2017-08-26 13:46 | Internal Med Progress Note ---
Date of Encounter: 08/26/17 Time of Encounter: 13:44 - Assessment and plan (1) Sepsis Current Visit: Yes Status: Acute Assessment and plan: Patient with fever T 100.6, T max 102 Still had fever , this a.m 100.5 Tachycardia. UA with evidence of UTI-complicated with renal stone and pyelonephritis Blood culture no growth urine culture lea-sensitive with E.coli Continue Ceftriaxone to 2g daily Zofran for n/v Pain control Qualifiers: Sepsis type: sepsis due to unspecified organism Qualified Code(s): A41.9 - Sepsis, unspecified organism (2) Pyelonephritis Current Visit: Yes Status: Acute Assessment and plan: See sepsis (3) Kidney stone Current Visit: Yes Status: Acute Assessment and plan: POD 3 s/p cystoscopy and left ureteral stent placement Continue IVF Continue pain control Urology following, recs appreciated (4) DVT prophylaxis Current Visit: Yes Status: Acute Assessment and plan: SQ heparin, ambulate - Time Spent With Patient Total time spent is greater than 50% in coordination of care (as documented) at patient's floor/unit and/or counseling patient: - Subjective Interval history: Seen and examined at bedside She has no new complains Fever is persistent, but improving - Constitutional Vitals: Temp Pulse Resp BP Pulse Ox 98.5 F 99 20 108/72 93 08/26/17 09:10 08/26/17 09:10 08/26/17 09:10 08/26/17 09:10 08/26/17 09:10 General appearance: Present: A&O X 3, pleasant, no acute distress, answers questions appropriately - Head Head exam: Present: atraumatic, normocephalic - Eye Eye exam: Present: PERRL, conjuntiva pink, sclera anicteric Pupils: Present: PERRL - Neck Neck exam general surgery: Present: supple, trachea midline. Absent: lymphadenopathy - Respiratory Respiratory exam: Present: CTAB. Absent: accessory muscle use, rales, rhonchi, wheezes - Cardiovascular Cardiovascular exam: Present: RRR, +S1, +S2. Absent: diastolic murmur, gallop, rubs, systolic murmur - GI/Abdominal GI/Abdominal exam: Present: normal bowel sounds, soft, no peritoneal signs. Absent: distended, tenderness - Extremities Exam Extremities exam: Present: warm, radial pulses palpable and symmetrical. Absent : calf tenderness, cyanotic, pedal edema - Neurological Exam Neurological exam: Present: alert, CN II-XII intact, oriented X3, no focal deficits. Absent: pronater drift, facial droop, speech deficit - Skin Skin exam: Present: dry, intact Internal Medicine: Result - Labs CBC & Chem 7: 08/26/17 06:01 08/26/17 06:01 Labs: Short CBC 08/26/17 Range/Units 06:01 WBC 12.2 H (4.3-11.1) K/mcL Hgb 10.9 L (11.5-15.4) g/dL Hct 32.4 L (35.3-44.9) % Plt Count 199 (140-400) K/mcL Neutrophils # 9.5 H (1.6-8.9) K/mcL BMP 08/26/17 06:01 Sodium 136 Potassium 3.0 L Chloride 105 Carbon Dioxide 22 L BUN 6 Creatinine 0.63 Glucose 120 H Calcium 8.4 L Consult Discharge Plan - Plan Referrals: Jaziel Arredondo MD [Partnered Physician] -
[2017-08-26] MEDS ORDERED: Ibuprofen 400 MG TABLET PO PRN (15:53)
[2017-08-26] MEDS ORDERED: Isovue-370 500 ML INFUS..BTL IV ONE (17:46)
[2017-08-27] MEDS: *HR* HYDROcodone/Acet 5/325 mg TABLET PO PRN ×2 (00:02→08:43)
[2017-08-27] MEDS: Ondansetron 4 MG/2 ML VIAL IVP PRN ×2 (00:02→16:34)
[2017-08-27] MEDS: *HR* Heparin 5,000 UNIT/ML VIAL SQ SCH ×3 (05:07→21:01)
[2017-08-27 06:53] LABS: Basophils # 0.1 K/mcL (0.0-0.2); Basophils % 0.4 %; Eosinophils # 0.1 K/mcL (0.0-0.6); Eosinophils % 0.9 %; Hematocrit 34.8 % (35.3-44.9); Hemoglobin 11.6 g/dL (11.5-15.4); Immature Granulocytes % 0.7 % (0-4); Lymphocytes # 2.5 K/mcL (0.6-4.6); Lymphocytes % 20.9 %; Mean Corpuscular HGB Conc 33.3 g/dL (31.6-35.5); Mean Corpuscular Hemoglobin 30.1 pg (28.0-33.3); Mean Corpuscular Volume 90.4 fL (83.0-100.0); Mean Platelet Volume 10.4 fL (9.4-12.4); Monocytes # 1.4 K/mcL (0.0-1.3); Monocytes % 11.6 %; Neutrophils # 7.8 K/mcL (1.6-8.9); Nucleated Red Blood Cells 0.3 /100 WBC (0); Platelet Count 241 K/mcL (140-400); Red Blood Count 3.85 M/mcL (3.82-4.97); Red Cell Distribution Width 12.7 % (11.5-14.5); Segmented Neutrophils % 65.5 %
[2017-08-27 07:07] LABS: BUN/Creatinine Ratio 11 (6-26); Blood Urea Nitrogen 6 mg/dL (6-20); Calcium 8.9 mg/dL (8.6-10.3); Carbon Dioxide 27 mEq/L (23-29); Chloride 106 mEq/L (98-107); Glucose 88 mg/dL (70-105); Osmolality,Calculated 285 (280-300); Potassium 3.7 mEq/L (3.5-5.1); Sodium 139 mEq/L (136-145); eGFR For African Americans > 60 (> 60); eGFR For Non-African Americans > 60 (> 60)
[2017-08-27 07:48] LABS: Platelet Estimate Normal (Normal)
[2017-08-27] MEDS ORDERED: 0.9 % Sodium Chloride 500 ML IVC ONE (07:49)
[2017-08-27] MEDS: cefTRIAXone 2,000 MG in Water for inj. (sterile) 20 ML 20 ML IVP SCH (08:42)
--- NOTE | 2017-08-27 10:14 | Urology Progress Note ---
Date of Encounter: 08/27/17 Time of Encounter: 10:13 - Assessment and Plan (1) Kidney stone Current Visit: Yes Status: Acute Assessment and plan: Postoperative #3 status post cystoscopy and left ureteral stent placement. The stent is in good position. Continue to monitor for now. (2) Pyelonephritis Current Visit: Yes Status: Acute Assessment and plan: She has had persistent fevers. White blood cell count is slowly getting better. I will consult infectious disease to provide some assistance on antibiotic course. I called Dr. Castillo and he agrees to see the patient tomorrow. Continue IV antibiotics for now. Progress Note Narrative: Postop day #3 status post cystoscopy and left ureteral stent placement. She is still having fevers. She had a CT scan done yesterday evening which showed some severe inflammation within the left kidney with possible phlegmon. No distinct abscess was noted. Stent was in good position and the kidney was draining well. Objective Initial Vital Signs Temp Pulse Resp BP Pulse Ox 99.8 F H 128 22 100/69 96 08/23/17 18:04 08/23/17 18:04 08/23/17 18:04 08/23/17 18:04 08/23/17 18:04 - General physical appearance Present: well developed, well nourished, no distress - Respiratory Present: normal respiratory effort - Abdomen Present: soft - Labs 08/27/17 05:22 08/27/17 05:22 Diabetes panel 08/27/17 Range/Units 05:22 Sodium 139 (136-145) mEq/L Potassium 3.7 (3.5-5.1) mEq/L Chloride 106 (98-107) mEq/L Carbon Dioxide 27 (23-29) mEq/L BUN 6 (6-20) mg/dL Creatinine 0.56 L (0.60-1.20) mg/dL Glucose 88 (70-105) mg/dL Calcium 8.9 (8.6-10.3) mg/dL Calcium panel 08/27/17 Range/Units 05:22 Calcium 8.9 (8.6-10.3) mg/dL Pituitary panel 08/27/17 Range/Units 05:22 Sodium 139 (136-145) mEq/L Potassium 3.7 (3.5-5.1) mEq/L Chloride 106 (98-107) mEq/L Carbon Dioxide 27 (23-29) mEq/L BUN 6 (6-20) mg/dL Creatinine 0.56 L (0.60-1.20) mg/dL Glucose 88 (70-105) mg/dL Calcium 8.9 (8.6-10.3) mg/dL Adrenal panel 08/27/17 Range/Units 05:22 Sodium 139 (136-145) mEq/L Potassium 3.7 (3.5-5.1) mEq/L Chloride 106 (98-107) mEq/L Carbon Dioxide 27 (23-29) mEq/L BUN 6 (6-20) mg/dL Creatinine 0.56 L (0.60-1.20) mg/dL Glucose 88 (70-105) mg/dL Calcium 8.9 (8.6-10.3) mg/dL Consult Discharge Plan - Plan Referrals: Jaziel Arredondo MD [Partnered Physician] -
--- NOTE | 2017-08-27 14:11 | Internal Med Progress Note ---
Date of Encounter: 08/27/17 Time of Encounter: 10:25 - Assessment and plan (1) Sepsis Current Visit: Yes Status: Acute Assessment and plan: Patient with fever T 100.6, T max 102 Last fever 08/26/17, improving Tachycardia also improving Blood culture negative Urine culture is E.coli-pansensitive. Continue Ceftriaxone to 2g daily Zofran for n/v Pain control Patient is clinically improving and will be treated for 14 days per EBM Qualifiers: Sepsis type: sepsis due to unspecified organism Qualified Code(s): A41.9 - Sepsis, unspecified organism (2) Pyelonephritis Current Visit: Yes Status: Acute Assessment and plan: See sepsis (3) Kidney stone Current Visit: Yes Status: Acute Assessment and plan: POD 4 s/p cystoscopy and left ureteral stent placement Continue pain control Urology following, recs appreciated (4) DVT prophylaxis Current Visit: Yes Status: Acute Assessment and plan: SQ heparin, ambulate - Time Spent With Patient Total time spent is greater than 50% in coordination of care (as documented) at patient's floor/unit and/or counseling patient: - Subjective Interval history: Seen and examined at bedside She has no new complains Last fever episode was 08/26/17 1544 Repeat Abd /Pelvis CT done 4/7 p.m shows no abscesses We are treating with ceftriaxone based on cultures Leukocytosis has improved from 28.4 to 11.9 Patient's urine is clearing and L flank tenderness has grossly improved Continue current management - Constitutional Vitals: Temp Pulse Resp BP Pulse Ox 99.9 F H 104 20 116/81 94 08/27/17 07:45 08/27/17 07:45 08/27/17 07:45 08/27/17 07:45 08/27/17 07:45 General appearance: Present: A&O X 3, pleasant, no acute distress, answers questions appropriately - Head Head exam: Present: atraumatic, normocephalic - Eye Eye exam: Present: PERRL, conjuntiva pink, sclera anicteric Pupils: Present: PERRL - Neck Neck exam general surgery: Present: supple, trachea midline. Absent: lymphadenopathy - Respiratory Respiratory exam: Present: CTAB. Absent: accessory muscle use, rales, rhonchi, wheezes - Cardiovascular Cardiovascular exam: Present: RRR, +S1, +S2. Absent: diastolic murmur, gallop, rubs, systolic murmur - GI/Abdominal GI/Abdominal exam: Present: normal bowel sounds, soft, no peritoneal signs. Absent: distended, tenderness - Extremities Exam Extremities exam: Present: warm, radial pulses palpable and symmetrical. Absent : calf tenderness, cyanotic, pedal edema - Neurological Exam Neurological exam: Present: alert, CN II-XII intact, oriented X3, no focal deficits. Absent: pronater drift, facial droop, speech deficit - Skin Skin exam: Present: dry, intact Internal Medicine: Result - Labs CBC & Chem 7: 08/27/17 05:22 08/27/17 05:22 Labs: Short CBC 08/27/17 Range/Units 05:22 WBC 11.9 H (4.3-11.1) K/mcL Hgb 11.6 (11.5-15.4) g/dL Hct 34.8 L (35.3-44.9) % Plt Count 241 (140-400) K/mcL Neutrophils # 7.8 (1.6-8.9) K/mcL BMP 08/27/17 05:22 Sodium 139 Potassium 3.7 Chloride 106 Carbon Dioxide 27 BUN 6 Creatinine 0.56 L Glucose 88 Calcium 8.9 - Impressions Impressions Abdomen/Pelvis CT 08/26/17 19:30 IMPRESSION: 1. Interval placement of double pigtail left ureteral stent with mild residual left-sided hydronephrosis. New striated appearance within the lateral portion of the left kidney with minimal perinephric fluid. The changes may represent mild focal nephritis or posttraumatic change. 2. New small bilateral pleural effusions with bibasilar opacification. The changes may represent atelectasis or infiltrate. 3. 3.5 cm cyst in the left adnexa, decreased from the comparison study. Free fluid within the pelvis. The lesion is most certainly benign and no follow-up imaging is indicated. D/ / 08/26/2017 20:51:14 Aquilino See MD / elvia Interpreting Provider: Aquilino See MD Consult Discharge Plan - Plan Referrals: Jaziel Arredondo MD [Partnered Physician] -
[2017-08-28] MEDS: *HR* HYDROcodone/Acet 5/325 mg TABLET PO PRN (02:51)
[2017-08-28 05:51] LABS: Basophils # 0.1 K/mcL (0.0-0.2); Basophils % 0.5 %; Eosinophils # 0.2 K/mcL (0.0-0.6); Eosinophils % 1.8 %; Hematocrit 36.1 % (35.3-44.9); Hemoglobin 12.1 g/dL (11.5-15.4); Immature Granulocytes % 1.2 % (0-4); Lymphocytes # 2.4 K/mcL (0.6-4.6); Lymphocytes % 22.5 %; Mean Corpuscular HGB Conc 33.5 g/dL (31.6-35.5); Mean Corpuscular Hemoglobin 30.3 pg (28.0-33.3); Mean Corpuscular Volume 90.5 fL (83.0-100.0); Mean Platelet Volume 9.7 fL (9.4-12.4); Monocytes # 1.1 K/mcL (0.0-1.3); Monocytes % 9.7 %; Platelet Count 281 K/mcL (140-400); Red Blood Count 3.99 M/mcL (3.82-4.97); Red Cell Distribution Width 12.7 % (11.5-14.5); Segmented Neutrophils % 64.3 %
[2017-08-28] MEDS: *HR* Heparin 5,000 UNIT/ML VIAL SQ SCH (05:56)
[2017-08-28 06:04] LABS: Neutrophils # 6.9 K/mcL (1.6-8.9)
[2017-08-28 06:16] LABS: BUN/Creatinine Ratio 19 (6-26); Blood Urea Nitrogen 10 mg/dL (6-20); Calcium 9.1 mg/dL (8.6-10.3); Carbon Dioxide 31 mEq/L (23-29); Chloride 106 mEq/L (98-107); Glucose 106 mg/dL (70-105); Osmolality,Calculated 287 (280-300); Potassium 3.5 mEq/L (3.5-5.1); Sodium 139 mEq/L (136-145); eGFR For African Americans > 60 (> 60); eGFR For Non-African Americans > 60 (> 60)
[2017-08-28 06:33] LABS: Platelet Estimate Normal (Normal)
[2017-08-28 06:34] LABS: Reactive Lymphocytes Present (Not Present)
[2017-08-28 07:29] VITALS: BP 118/81
--- NOTE | 2017-08-28 09:32 | Discharge Summary ---
- NOTES TO OUTPATIENT PROVIDER Notes to Outpatient Provider: Patient was admitted for severe sepsis secondary to lea sesnitive E.coli Pyelonpehritis, with obstructing L renal calculi. She underwent cystoscopy and left ureteral stent placement , and procedure was tolerated well. Perinephric abscess was ruled ut with repeat imaging. Due to presence of calculi, she requires 14 days of treatment, she has received 5 days of IV in-patient, discharged with 9 more days of oral antibiotics Date of Encounter: 08/28/17 Time of Encounter: 09:28 - Discharge Diagnosis (1) Sepsis Priority: Primary Status: Resolved Qualifiers: Sepsis type: Escherichia coli Qualified Code(s): A41.51 - Sepsis due to Escherichia coli [E. coli] (2) Pyelonephritis Priority: Primary Status: Acute (3) Kidney stone Priority: Primary Status: Acute (4) DVT prophylaxis Priority: Primary Status: Acute Hospital course: Ms. Cortés is a 31 year old female with no PMH who was admitted for severe sepsis with pyelonpahritis and obstructing L renal calculi She was admitted and co-managed with urology She is POD 5 s/p cystoscopy and left ureteral stent placement, she has been making clear urine and is ambulatory in no form of distress, L CVA tenderness has resolved Her fever persisted on 2g Ceftriaxone and a repeat Abd/Pelvis CT was done on 4 p.m shows no abscesses, functional stent in place. On arrival she had a WBC of 28,000, this has resolved to 10,800 this a.m . She has been afebrile for >48hrs. Urine culture grew lea-sensitive E.coli She has received 5 days of IV ceftriaxone 2g daily in-patient with clearance of infection She is medically stable to be discharged home to complete 9-10 more days of Omnicef BID at home for complicated E.coli pyelonephritis with sepsis Plan of care discussed, verbalized understanding Follow up with Urology for possible left ureteroscopy as an outpatient once infection clears Follow up with PCP also Discharge discussed with: patient, family, nurse, case management - Time Spent with Patient Total time spent providing and/or coordinating discharge services: Greater than 30 minutes - Discharge Medications Prescriptions: Acetaminophen [Tylenol] 650 mg PO Q6HR PRN #20 tablet PRN Reason: Mild Pain/Fever HYDROcodone/Acet 5/325 mg [[place] 5-325 mg] 1 tab PO Q6HR PRN 5 Days #10 tablet PRN Reason: Moderate Pain Cefdinir [Omnicef] 300 mg PO BID #20 capsule Home Medications: [id number]/Iron Car/FA/Om3/Dha/Epa [One-A-Day 1 Dha Sfgl] 1 each PO DAILY 08/23/17 [History] Acetaminophen [Tylenol] 650 mg PO Q6HR PRN #20 tablet 08/28/17 [Rx] Cefdinir [Omnicef] 300 mg PO BID #20 capsule 08/28/17 [Rx] HYDROcodone/Acet 5/325 mg [[place] 5-325 mg] 1 tab PO Q6HR PRN 5 Days #10 tablet 08/28/17 [Rx] Allergies/Adverse Reactions: 3 Allergy/AdvReac Type Severity Reaction Status Date / Time No Known Allergies Allergy Verified 05/27/15 10:22 Date of admission: 08/23/17 21:46 Primary care physician: Rene Barrios Discharging clinician: Cristóbal Watt Anticipated date of discharge: 08/28/17 - Constitutional Vitals: Temp Pulse Resp BP Pulse Ox 98.4 F 81 15 118/81 93 08/28/17 07:27 08/28/17 07:27 08/28/17 07:27 08/28/17 07:27 08/28/17 08:11 General appearance: Present: A&O X 3, pleasant, no acute distress, answers questions appropriately - Head Head exam: Present: atraumatic, normocephalic - Eye Eye exam: Present: PERRL, conjuntiva pink, sclera anicteric Pupils: Present: PERRL - Neck Neck exam general surgery: Present: supple, trachea midline. Absent: lymphadenopathy - Respiratory Respiratory exam: Present: CTAB. Absent: accessory muscle use, rales, rhonchi, wheezes - Cardiovascular Cardiovascular exam: Present: RRR, +S1, +S2. Absent: diastolic murmur, gallop, rubs, systolic murmur - GI/Abdominal GI/Abdominal exam: Present: normal bowel sounds, soft, no peritoneal signs. Absent: distended, tenderness - Extremities Exam Extremities exam: Present: warm, radial pulses palpable and symmetrical. Absent : calf tenderness, cyanotic, pedal edema - Back Exam Back exam: Absent: CVA tenderness (L), CVA tenderness (R) - Neurological Exam Neurological exam: Present: alert, CN II-XII intact, oriented X3, no focal deficits. Absent: pronater drift, facial droop, speech deficit - Skin Skin exam: Present: dry, intact - Patient Status Disposition: Home, Self-Care Condition: Good Functional capacity at discharge: independent ambulation Overall status at discharge: patient is back to baseline - Discharge Instructions Instructions: Hydrocodone/Acetaminophen (By mouth), Cefdinir (By mouth), Urinary Tract Infection in Women (DC) Follow Up With: Jaziel Arredondo MD [Partnered Physician] - 09/05/17 8:15 am Forms: Inpatient Work/School Release - Diet and Activity Activity: resume usual activities as tolerated Diet: regular diet
[2017-08-28] MEDS: cefTRIAXone 2,000 MG in Water for inj. (sterile) 20 ML 20 ML IVP SCH (09:42)
== END 2017-08-28 10:36 | disposition home or self-care (01) | DRG 872 ==
LOC: 3ANU 17:58 → EMEROO 17:58 → 3ANU 22:04
PROVIDERS: ADMIT Internal Medicine; ATTEND Internal Medicine

== ENCOUNTER 2017-09-05 08:34 | Observation (INO) ==
[2017-09-05] MEDS ORDERED: Acetaminophen 325 MG TABLET PO PRN (09:37)
[2017-09-05] MEDS ORDERED: *HR* HYDROcodone/Acet 5/325 mg TABLET PO PRN (09:37)
[2017-09-05] MEDS ORDERED: Naloxone 0.4 MG/ML INJ IVP PRN (09:37)
--- NOTE | 2017-09-05 09:49 | Urology History & Physical ---
Date of Encounter: 09/05/17 Time of Encounter: 09:47 Assessment and Plan (1) Kidney stone Current Visit: No Status: Acute 31-year-old woman status post left ureteroscopy, laser lithotripsy, and stent placement. I will order a CT scan to see if there is any obstructing ureteral stones. (2) Nausea and vomiting Current Visit: No Status: Acute She is being admitted for severe nausea with emesis. We will provide her some fluid resuscitation and antiemetics. CT scan will be ordered. I answered all of her questions. 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 Cortés is a 31 year old female was admitted for nausea and vomiting after a left ureteroscopy, laser C, and stent placement from 09/01/2017. She developed severe nausea and emesis even while the stent was in place. She eventually removed the stent and has had persistent nausea with emesis. She was seen in the office earlier today and was admitted for IV fluids. Past Med Surg Social Fam HX - Past Medical History Medical history: kidney stones, migraine Psychiatric history: no psych history - Past Surgical History Surgical History: no surgical history - Social History Smoking Status: Never smoker Smokeless Tobacco Status: No Alcohol use: rarely Drug use: none Medications and Allergies [id number]/Iron Car/FA/Om3/Dha/Epa [One-A-Day 1 Dha Sfgl] 1 each PO DAILY 08/23/17 [History] Acetaminophen [Tylenol] 650 mg PO Q6HR PRN #20 tablet 08/28/17 [Rx] Cefdinir [Omnicef] 300 mg PO BID #20 capsule 08/28/17 [Rx] Docusate [Colace] 100 mg PO BID #60 capsule 09/01/17 [Rx] Oxycodone HCl/Acetaminophen [Percocet 5-325 mg Tablet] 1 each PO Q4H PRN 5 Days #15 tablet 09/01/17 [Rx] Phenazopyridine HCl [Pyridium] 200 mg PO TIDAC #12 tab 09/01/17 [Rx] Promethazine [Phenergan] 12.5 mg PO Q8HR PRN #10 tablet 09/02/17 [Rx] 3 Allergy/AdvReac Type Severity Reaction Status Date / Time No Known Allergies Allergy Verified 09/01/17 13:00 Review of Systems - Constitutional no chills, no fever(s) - EENT Nose, mouth and throat: no dizziness - Cardiovascular no chest pain - Respiratory no dyspnea - Gastrointestinal nausea, vomiting - Genitourinary Genitourinary: no flank pain, no hematuria - Musculoskeletal no back pain - Integumentary no erythema, no rash - Neurological no weakness - Psychiatric no suicidal ideation - Hematologic/Lymphatic no easy bleeding - Allergic/Immunologic no wheezing Exam - General physical appearance Present: well developed, well nourished, moderate distress - Eyes Absent: icteric - ENT Present: normal nares - Neck Present: trachea midline - Respiratory Present: normal respiratory effort - Cardiovascular Cardiovascular exam IM: RRR - Abdomen Abdomen: Present: soft - Integumentary Present: no rash - Neurologic Present: normal coordination - Musculoskeletal Present: normal gait Urology Results - Labs 09/05/17 10:05 09/05/17 10:05 All other labs normal. - Imaging CT scan - abdomen: report reviewed, image reviewed CT scan - pelvis: report reviewed, image reviewed
[2017-09-05] MEDS: Ondansetron 4 MG/2 ML VIAL IVP PRN ×2 (10:06→17:15)
[2017-09-05 10:20] LABS: Basophils # 0.1 K/mcL (0.0-0.2); Basophils % 0.6 %; Eosinophils # 0.1 K/mcL (0.0-0.6); Eosinophils % 0.8 %; Hematocrit 41.2 % (35.3-44.9); Hemoglobin 14.3 g/dL (11.5-15.4); Immature Granulocytes % 0.4 % (0-4); Lymphocytes % 14.3 %; Mean Corpuscular HGB Conc 34.7 g/dL (31.6-35.5); Mean Corpuscular Volume 89.2 fL (83.0-100.0); Mean Platelet Volume 8.7 fL (9.4-12.4); Monocytes # 0.9 K/mcL (0.0-1.3); Monocytes % 6.2 %; Neutrophils # 11.1 K/mcL (1.6-8.9); Platelet Count 641 K/mcL (140-400); Red Blood Count 4.62 M/mcL (3.82-4.97); Red Cell Distribution Width 12.6 % (11.5-14.5); Segmented Neutrophils % 77.7 %
[2017-09-05] MEDS: 0.9 % Sodium Chloride 1,000 ML IVC SCH (10:25)
[2017-09-05] MEDS ORDERED: 0.9 % Sodium Chloride 1,000 ML IVC ONE (10:36)
[2017-09-05 10:39] LABS: BUN/Creatinine Ratio 16 (6-26); Blood Urea Nitrogen 14 mg/dL (6-20); Calcium 10.2 mg/dL (8.6-10.3); Carbon Dioxide 24 mEq/L (23-29); Chloride 101 mEq/L (98-107); Glucose 117 mg/dL (70-105); Osmolality,Calculated 288 (280-300); Potassium 3.2 mEq/L (3.5-5.1); Sodium 138 mEq/L (136-145); eGFR For African Americans > 60 (> 60); eGFR For Non-African Americans > 60 (> 60)
[2017-09-05] MEDS: cefTRIAXone 1,000 MG in Water for inj. (sterile) 20 ML 10 ML IVP SCH (11:05)
[2017-09-05] MEDS: *HR* Promethazine 25 MG/ML VIAL IVP PRN ×2 (11:05→21:24)
[2017-09-05] MEDS ORDERED: Potassium Chloride 40 MEQ, Lidocaine 1% 2 ML in D5% in Water 500 ML IVPB ONE (12:16)
[2017-09-05] MEDS: Scopolamine Patch 1.5 MG PATCH.TD72 TD SCH (12:52)
[2017-09-05] MEDS: Metoclopramide 20 MG in 0.9 % Sodium Chloride 50 ML IVPB SCH ×2 (12:52→19:16)
[2017-09-05] MEDS: Ketorolac 15 MG/ML VIAL IVP SCH (18:42)
[2017-09-06] MEDS: Ketorolac 15 MG/ML VIAL IVP SCH ×4 (00:22→17:16)
[2017-09-06] MEDS: Metoclopramide 20 MG in 0.9 % Sodium Chloride 50 ML IVPB SCH ×3 (01:17→17:18)
[2017-09-06] MEDS: 0.9 % Sodium Chloride 1,000 ML IVC SCH (03:48)
[2017-09-06 05:42] LABS: Basophils # 0.1 K/mcL (0.0-0.2); Basophils % 0.9 %; Eosinophils # 0.2 K/mcL (0.0-0.6); Eosinophils % 1.9 %; Hematocrit 34.4 % (35.3-44.9); Hemoglobin 11.3 g/dL (11.5-15.4); Immature Granulocytes % 0.2 % (0-4); Lymphocytes # 2.9 K/mcL (0.6-4.6); Lymphocytes % 33.6 %; Mean Corpuscular HGB Conc 32.8 g/dL (31.6-35.5); Mean Corpuscular Hemoglobin 29.9 pg (28.0-33.3); Mean Platelet Volume 8.9 fL (9.4-12.4); Monocytes # 0.9 K/mcL (0.0-1.3); Monocytes % 10.8 %; Neutrophils # 4.5 K/mcL (1.6-8.9); Platelet Count 466 K/mcL (140-400); Red Blood Count 3.78 M/mcL (3.82-4.97); Red Cell Distribution Width 12.8 % (11.5-14.5); Segmented Neutrophils % 52.6 %
[2017-09-06 05:56] LABS: BUN/Creatinine Ratio 16 (6-26); Blood Urea Nitrogen 10 mg/dL (6-20); Carbon Dioxide 24 mEq/L (23-29); Chloride 110 mEq/L (98-107); Glucose 95 mg/dL (70-105); Osmolality,Calculated 287 (280-300); Phosphorous 4.4 mg/dL (2.7-4.5); Potassium 3.5 mEq/L (3.5-5.1); Sodium 139 mEq/L (136-145); eGFR For African Americans > 60 (> 60); eGFR For Non-African Americans > 60 (> 60)
--- NOTE | 2017-09-06 07:05 | Discharge Summary ---
Date of Encounter: 09/06/17 Time of Encounter: 07:03 - Discharge Diagnosis (1) Kidney stone Priority: Secondary Status: Acute (2) Nausea and vomiting Priority: Primary Status: Acute Qualifiers: Vomiting Intractability: intractable - Hospital Course Hospital course: Ms. Cortés is a 31 year old female with a history nephrolithiasis. She underwent a left ureteroscopy, laser lithotripsy, stent placement on September 01 2017. She developed nausea with emesis afterwards. She presented to the emergency department and was given antiemetics. She was discharged home. On she was seen in urology clinic and was actively vomiting. She was admitted to the hospital for IV fluids. On the hospital she had potassium. She was given antiemetics. Her nausea eventually improved. A CT did show a small left distal ureteral stone fragment. Her renal function was normal. She was discharged home on hospital day #2 after her diet was advanced and her nausea resolved. - Time Spent with Patient Total time spent providing and/or coordinating discharge services: Less than 30 minutes Labs on day of discharge: Labs from last 24 hours 09/06/17 09/06/17 09/05/17 05:11 05:11 10:05 WBC 8.5 RBC 3.78 L Hgb 11.3 L D Hct 34.4 L MCV 91.0 MCH 29.9 MCHC 32.8 RDW 12.8 Plt Count 466 H MPV 8.9 L Immature Gran % 0.2 Seg Neutrophils % 52.6 Lymphocytes % 33.6 Monocytes % 10.8 Eosinophils % 1.9 Basophils % 0.9 Neutrophils # 4.5 Lymphocytes # 2.9 Monocytes # 0.9 Eosinophils # 0.2 Basophils # 0.1 Sodium 139 138 Potassium 3.5 3.2 L Chloride 110 H 101 Carbon Dioxide 24 24 BUN 10 14 Creatinine 0.64 0.88 Est GFR ( Amer) > 60 > 60 Est GFR (Non-Af Amer) > 60 > 60 BUN/Creatinine Ratio 16 16 Glucose 95 117 H Calculated Osmolality 287 288 Calcium 9.0 10.2 Phosphorus 4.4 Magnesium 2.0 09/05/17 10:05 WBC 14.2 H RBC 4.62 Hgb 14.3 Hct 41.2 MCV 89.2 MCH 31.0 MCHC 34.7 RDW 12.6 Plt Count 641 H MPV 8.7 L Immature Gran % 0.4 Seg Neutrophils % 77.7 Lymphocytes % 14.3 Monocytes % 6.2 Eosinophils % 0.8 Basophils % 0.6 Neutrophils # 11.1 H Lymphocytes # 2.0 Monocytes # 0.9 Eosinophils # 0.1 Basophils # 0.1 Sodium Potassium Chloride Carbon Dioxide BUN Creatinine Est GFR ( Amer) Est GFR (Non-Af Amer) BUN/Creatinine Ratio Glucose Calculated Osmolality Calcium Phosphorus Magnesium - Impressions ITS Impressions Abdomen/Pelvis CT 09/05/17 09:37 IMPRESSION: 1. The double pigtail left-sided ureteral stent has been removed 2. 3 mm stone in the distal left ureter causing mild left hydroureter and left hydronephrosis The findings were sent to the Radiology [facility] at 10:50 am on 09/05/2017to be communicated to a licensed caregiver. D/ / Donald Euceda MD / Donald Euceda MD Interpreting Provider: Donald Euceda MD - Discharge Medications Prescriptions: Promethazine [Phenergan] 12.5 mg PO Q8HR PRN #15 tablet PRN Reason: Nausea Ondansetron [Zofran ODT] 8 mg SL Q6H PRN #30 tab PRN Reason: Nausea Home Medications: [id number]/Iron Car/FA/Om3/Dha/Epa [One-A-Day 1 Dha Sfgl] 1 each PO DAILY 08/23/17 [History] Acetaminophen [Tylenol] 650 mg PO Q6HR PRN #20 tablet 08/28/17 [Rx] Cefdinir [Omnicef] 300 mg PO BID #20 capsule 08/28/17 [Rx] Docusate [Colace] 100 mg PO BID #60 capsule 09/01/17 [Rx] Oxycodone HCl/Acetaminophen [Percocet 5-325 mg Tablet] 1 each PO Q4H PRN 5 Days #15 tablet 09/01/17 [Rx] Phenazopyridine HCl [Pyridium] 200 mg PO TIDAC #12 tab 09/01/17 [Rx] Promethazine [Phenergan] 12.5 mg PO Q8HR PRN #10 tablet 04/14/18 [Rx] Ondansetron [Zofran ODT] 8 mg SL Q6H PRN #30 tab 09/06/17 [Rx] Promethazine [Phenergan] 12.5 mg PO Q8HR PRN #15 tablet 09/06/17 [Rx] Allergies/Adverse Reactions: 3 Allergy/AdvReac Type Severity Reaction Status Date / Time No Known Allergies Allergy Verified 09/01/17 13:00 Date of admission: 09/05/17 08:38 Primary care physician: Jaziel Arredondo, Anticipated date of discharge: 09/06/17 Exam Initial Vital Signs Temp Pulse Resp BP Pulse Ox 98.8 F 74 16 127/87 100 09/05/17 09:54 09/05/17 09:54 09/05/17 09:54 09/05/17 09:54 09/05/17 09:54 - General physical appearance Present: well developed, well nourished, no distress - Eyes Absent: icteric - ENT Present: normal nares - Neck Present: trachea midline - Respiratory Present: normal respiratory effort - Cardiovascular Cardiovascular exam IM: RRR - Abdomen Abdomen: Present: soft - Integumentary Present: no rash - Neurologic Present: normal coordination - Musculoskeletal Present: normal gait - Patient Status Disposition: Home, Self-Care Condition: Good Functional capacity at discharge: independent ambulation Overall status at discharge: patient is progressing back to baseline - Discharge Instructions Follow Up With: Jaziel Arredondo MD [Primary Care Provider] - (2 weeks.) Additional Instructions: 1. The patient can follow up in 2 weeks for a postoperative check. 2. She should slowly advance diet. 3. The patient should call for any fevers, chills, nausea, emesis, or uncontrolled pain. 4. Please provide a work excuse if necessary, but she can resume work whenever she feels ready. 5. Okay to remove scopalamine patchin 2-3 days. - Diet and Activity Activity: increase activity as tolerated Diet: advance to your usual diet
[2017-09-06] MEDS: cefTRIAXone 1,000 MG in Water for inj. (sterile) 20 ML 10 ML IVP SCH (07:59)
[2017-09-06] MEDS: Ondansetron 4 MG/2 ML VIAL IVP PRN ×3 (07:59→22:11)
[2017-09-06] MEDS: *HR* Promethazine 25 MG/ML VIAL IVP PRN ×2 (10:14→18:39)
--- NOTE | 2017-09-06 14:45 | Urology Progress Note ---
Date of Encounter: 09/06/17 Time of Encounter: 14:43 - Assessment and Plan (1) Kidney stone Current Visit: No Status: Acute Assessment and plan: Will monitor for left ureteral stone. She is not having flank pain associated with it. (2) Nausea and vomiting Current Visit: No Status: Acute Assessment and plan: Continue liquids Advance as tolerated. Will keep in the hospital today. Cancel d/c home. Qualifiers: Vomiting Intractability: intractable Qualified Code(s): R11.2 - Nausea with vomiting, unspecified Progress Note Narrative: 31 year old woman with nausea and emesis after ureteroscopy. She was feeling well this morning and tried a regular diet which led to nausea and emesis. She can tolerate liquids, but isn't tolerating solid food yet. Objective Initial Vital Signs Temp Pulse Resp BP Pulse Ox 98.8 F 74 16 127/87 100 09/05/17 09:54 09/05/17 09:54 09/05/17 09:54 09/05/17 09:54 09/05/17 09:54 - General physical appearance Present: well developed, well nourished, no distress - Respiratory Present: normal respiratory effort - Abdomen Present: soft - Labs 09/06/17 05:11 09/06/17 05:11 Diabetes panel 09/06/17 Range/Units 05:11 Sodium 139 (136-145) mEq/L Potassium 3.5 (3.5-5.1) mEq/L Chloride 110 H (98-107) mEq/L Carbon Dioxide 24 (23-29) mEq/L BUN 10 (6-20) mg/dL Creatinine 0.64 (0.60-1.20) mg/dL Glucose 95 (70-105) mg/dL Calcium 9.0 (8.6-10.3) mg/dL Calcium panel 09/06/17 Range/Units 05:11 Calcium 9.0 (8.6-10.3) mg/dL Phosphorus 4.4 (2.7-4.5) mg/dL Pituitary panel 09/06/17 Range/Units 05:11 Sodium 139 (136-145) mEq/L Potassium 3.5 (3.5-5.1) mEq/L Chloride 110 H (98-107) mEq/L Carbon Dioxide 24 (23-29) mEq/L BUN 10 (6-20) mg/dL Creatinine 0.64 (0.60-1.20) mg/dL Glucose 95 (70-105) mg/dL Calcium 9.0 (8.6-10.3) mg/dL Adrenal panel 09/06/17 Range/Units 05:11 Sodium 139 (136-145) mEq/L Potassium 3.5 (3.5-5.1) mEq/L Chloride 110 H (98-107) mEq/L Carbon Dioxide 24 (23-29) mEq/L BUN 10 (6-20) mg/dL Creatinine 0.64 (0.60-1.20) mg/dL Glucose 95 (70-105) mg/dL Calcium 9.0 (8.6-10.3) mg/dL Consult Discharge Plan - Plan Additional Instructions: 1. The patient can follow up in 2 weeks for a postoperative check. 2. She should slowly advance diet. 3. The patient should call for any fevers, chills, nausea, emesis, or uncontrolled pain. 4. Please provide a work excuse if necessary, but she can resume work whenever she feels ready. 5. Okay to remove scopalamine patchin 2-3 days. Referrals: Jaziel Arredondo MD [Primary Care Provider] - 09/19/17 9:00 am (2 weeks.) Prescriptions: Promethazine [Phenergan] 12.5 mg PO Q8HR PRN #15 tablet PRN Reason: Nausea Ondansetron [Zofran ODT] 8 mg SL Q6H PRN #30 tab PRN Reason: Nausea
[2017-09-07] MEDS: Metoclopramide 20 MG in 0.9 % Sodium Chloride 50 ML IVPB SCH ×3 (00:58→17:18)
[2017-09-07] MEDS: Ketorolac 15 MG/ML VIAL IVP SCH ×3 (01:00→10:59)
--- NOTE | 2017-09-07 07:32 | Urology Progress Note ---
Date of Encounter: 09/07/17 Time of Encounter: 07:30 - Assessment and Plan (1) Kidney stone Current Visit: No Status: Acute (2) Nausea and vomiting Current Visit: No Status: Acute Assessment and plan: 31-year-old woman with nausea. Urine output has been good and she has been tolerating liquids. We will try to slowly advance her diet to soft. I will order some Prilosec. She should ambulate 3 times per day. We will order a suppository. Qualifiers: Vomiting Intractability: intractable Qualified Code(s): R11.2 - Nausea with vomiting, unspecified Progress Note Narrative: She feels that she is doing better today. Nausea is improved. She would like to try some softer solids today. She is interested in some Prilosec. Objective Initial Vital Signs Temp Pulse Resp BP Pulse Ox 98.8 F 74 16 127/87 100 09/05/17 09:54 09/05/17 09:54 09/05/17 09:54 09/05/17 09:54 09/05/17 09:54 - General physical appearance Present: well developed, well nourished, no distress - Respiratory Present: normal respiratory effort - Abdomen Present: soft - Labs 09/06/17 05:11 09/06/17 05:11 Consult Discharge Plan - Plan Additional Instructions: 1. The patient can follow up in 2 weeks for a postoperative check. 2. She should slowly advance diet. 3. The patient should call for any fevers, chills, nausea, emesis, or uncontrolled pain. 4. Please provide a work excuse if necessary, but she can resume work whenever she feels ready. 5. Okay to remove scopalamine patchin 2-3 days. Referrals: Jaziel Arredondo MD [Primary Care Provider] - 09/19/17 9:00 am (2 weeks.) Prescriptions: Promethazine [Phenergan] 12.5 mg PO Q8HR PRN #15 tablet PRN Reason: Nausea Ondansetron [Zofran ODT] 8 mg SL Q6H PRN #30 tab PRN Reason: Nausea
[2017-09-07] MEDS: Ondansetron 4 MG/2 ML VIAL IVP PRN ×2 (08:02→18:08)
[2017-09-07] MEDS: Bisacodyl 10 MG RECTAL SUPPOSITORY RC SCH (08:02)
[2017-09-07] MEDS: *HR* Promethazine 25 MG/ML VIAL IVP PRN (10:59)
[2017-09-07] MEDS ORDERED: GI Cocktail 40 ML EACH PO ONE (14:18)
--- NOTE | 2017-09-07 14:26 | Internal Medicine Consult Note ---
Date of Encounter: 09/07/17 Time of Encounter: 14:53 - Assessment and plan (1) Nausea and vomiting Current Visit: No Status: Acute Assessment and plan: Persistent postsurgery. No acute abdominal findings and patient does not appear dehydrated. Possible gastritis and constipation leading the above symptoms therefore will start symptomatic treatment GI cocktail, Carafate, continue PPI. Will also start MiraLAX, Dulcolax as needed and if patient not responding to the treatment or get worse then need consult GI specialist. CT abdomen and pelvis with no acute finding Qualifiers: Vomiting Intractability: intractable Qualified Code(s): R11.2 - Nausea with vomiting, unspecified (2) Status post laser lithotripsy of ureteral calculus Current Visit: No Status: Acute Assessment and plan: Primary service is following this problem and does not think that could be contributing to the present complaint. Patient is not symptomatic and appears very stable. - Time Spent With Patient Total time spent is greater than 50% in coordination of care (as documented) at patient's floor/unit and/or counseling patient: 25 - 35 minutes Internal Medicine - CN: HPI - Data of Consult Requesting Physician: Jaziel Arredondo, - Consult Narrative History of present illness: Ms. Cortés is a 31 year old female is seen with recent left ureteroscopy, status post left ureteric stent placement on last Monday and got removed this Monday is admitted under the urologist service for the evaluation of persistent nausea vomiting started day after the surgery on this Monday. Patient is not able to keep down any solid food but has been able to drink liquid in limited amount. Zofran, Phenergan, Reglan and scopolamine was initiated with the primary service but patient does not have much relief therefore hospitalist got consultation for further evaluation. Patient complained of nausea, vomiting especially after solid food, heartburning , constipation last good bowel movement a week before but today morning had very little hard stool after Dulcolax suppository and also have decreased flatus but good burp. Patient denies hematemesis, melena, hematochezia, abdominal pain, flank pain, urinary complaints, chest pain, shortness of breath. Patient denies any abdominal surgery in the past, recent travel. Past Med Surg Social Fam HX - Past Medical History Medical history: kidney stones, migraine Psychiatric history: no psych history - Past Surgical History Surgical History: no surgical history - Social History Smoking Status: Never smoker Smokeless Tobacco Status: No Alcohol use: rarely Drug use: none - Gastrointestinal Gastrointestinal: belching, constipation, dyspepsia, heartburn, nausea, vomiting Internal Medicine - CN: Meds [id number]/Iron Car/FA/Om3/Dha/Epa [One-A-Day 1 Dha Sfgl] 1 each PO DAILY 08/23/17 [History] Acetaminophen [Tylenol] 650 mg PO Q6HR PRN #20 tablet 08/28/17 [Rx] Cefdinir [Omnicef] 300 mg PO BID #20 capsule 08/28/17 [Rx] Docusate [Colace] 100 mg PO BID #60 capsule 09/01/17 [Rx] Oxycodone HCl/Acetaminophen [Percocet 5-325 mg Tablet] 1 each PO Q4H PRN 5 Days #15 tablet 09/01/17 [Rx] Phenazopyridine HCl [Pyridium] 200 mg PO TIDAC #12 tab 09/01/17 [Rx] Promethazine [Phenergan] 12.5 mg PO Q8HR PRN #10 tablet 09/02/17 [Rx] Ondansetron [Zofran ODT] 8 mg SL Q6H PRN #30 tab 09/06/17 [Rx] Promethazine [Phenergan] 12.5 mg PO Q8HR PRN #15 tablet 09/06/17 [Rx] 3 Allergy/AdvReac Type Severity Reaction Status Date / Time No Known Allergies Allergy Verified 09/01/17 13:00 Internal Medicine - CN: Exam - Constitutional Vitals: Temp Pulse Resp BP Pulse Ox 98.5 F 80 17 146/92 97 09/07/17 10:59 09/07/17 10:59 09/07/17 10:59 09/07/17 10:59 09/07/17 10:59 Exam: General appearance: No acute distress, A&O X 3, obese Head exam: Atraumatic Eye exam: EOMI, PERRLA ENT exam: Moist oral mucosa Neck nontender, supple Respiratory exam: Clear to auscultation bilaterally Cardiovascular exam: Regular rate and rhythm, no systolic murmur Abdominal exam: Soft, nontender, nondistended, positive bowel sounds Extremities exam: No calf tenderness, no pedal edema Present: Skin-no rash, warm, dry, intact Neurological exam: Alert, awake, oriented 3, CN II-XII intact, no focal deficits. No facial droop. Normal speech. Normal gait. Internal Medicine - CN: Reslt - Labs CBC & Chem 7: 09/06/17 05:11 09/06/17 05:11 Consult Discharge Plan - Plan Additional Instructions: 1. The patient can follow up in 2 weeks for a postoperative check. 2. She should slowly advance diet. 3. The patient should call for any fevers, chills, nausea, emesis, or uncontrolled pain. 4. Please provide a work excuse if necessary, but she can resume work whenever she feels ready. 5. Okay to remove scopalamine patchin 2-3 days. Referrals: Jaziel Arredondo MD [Primary Care Provider] - 09/19/17 9:00 am (2 weeks.) Prescriptions: Promethazine [Phenergan] 12.5 mg PO Q8HR PRN #15 tablet PRN Reason: Nausea Ondansetron [Zofran ODT] 8 mg SL Q6H PRN #30 tab PRN Reason: Nausea
[2017-09-07] MEDS ORDERED: *HR* LORazepam 2 MG/ML VIAL IVP ONE (17:41)
[2017-09-07] MEDS: Sennosides/Docusate Sodium TABLET PO SCH (18:08)
[2017-09-08] MEDS: D5% in 0.45% NACL w KCl 20 MEQ/1,000 ML MLS IVC SCH ×2 (00:15→18:00)
[2017-09-08] MEDS: *HR* Promethazine 25 MG/ML VIAL IVP PRN ×2 (00:19→23:36)
[2017-09-08] MEDS: 0.9 % Sodium Chloride 1,000 ML IVC SCH (01:10)
[2017-09-08] MEDS: Metoclopramide 20 MG in 0.9 % Sodium Chloride 50 ML IVPB SCH ×3 (01:55→18:16)
[2017-09-08 06:41] LABS: BUN/Creatinine Ratio 10 (6-26); Blood Urea Nitrogen 6 mg/dL (6-20); Calcium 9.3 mg/dL (8.6-10.3); Carbon Dioxide 25 mEq/L (23-29); Chloride 103 mEq/L (98-107); Glucose 112 mg/dL (70-105); Magnesium 2.2 mg/dL (1.6-2.6); Osmolality,Calculated 282 (280-300); Phosphorous 4.6 mg/dL (2.7-4.5); Potassium 3.7 mEq/L (3.5-5.1); Sodium 137 mEq/L (136-145); eGFR For African Americans > 60 (> 60); eGFR For Non-African Americans > 60 (> 60)
[2017-09-08] MEDS: Ondansetron 4 MG/2 ML VIAL IVP PRN ×3 (06:41→22:32)
--- NOTE | 2017-09-08 07:08 | Urology Progress Note ---
Date of Encounter: 09/08/17 Time of Encounter: 07:05 - Assessment and Plan (1) Kidney stone Current Visit: No Status: Acute Assessment and plan: She had a distal left ureteral stone on a CT scan from earlier this week. I will repeat the CT scan today to see if the stone has passed. If it has not, it could be possible that the nausea related to this obstructing stone. I will consider ureteroscopic stone extraction if the stone is still present. (2) Nausea and vomiting Current Visit: No Status: Acute Assessment and plan: 31-year-old woman with persistent nausea and emesis after left ureteroscopic stone extraction. Appreciate hospitalist recommendations. Labs are okay today. We will request a GI consultation. I will also repeat his CT scan today of the abdomen and pelvis to determine if she passed her left ureteral stone. Qualifiers: Vomiting Intractability: intractable Qualified Code(s): R11.2 - Nausea with vomiting, unspecified Progress Note Narrative: Patient is still having nausea overnight. No emesis. She denies passing gas. She is voiding well. Objective Initial Vital Signs Temp Pulse Resp BP Pulse Ox 98.8 F 74 16 127/87 100 09/05/17 09:54 09/05/17 09:54 09/05/17 09:54 09/05/17 09:54 09/05/17 09:54 - General physical appearance Present: well developed, well nourished, no distress - Respiratory Present: normal respiratory effort - Abdomen Present: soft - Labs 09/06/17 05:11 09/08/17 05:40 Diabetes panel 09/08/17 Range/Units 05:40 Sodium 137 (136-145) mEq/L Potassium 3.7 (3.5-5.1) mEq/L Chloride 103 (98-107) mEq/L Carbon Dioxide 25 (23-29) mEq/L BUN 6 (6-20) mg/dL Creatinine 0.63 (0.60-1.20) mg/dL Glucose 112 H (70-105) mg/dL Calcium 9.3 (8.6-10.3) mg/dL Calcium panel 09/08/17 Range/Units 05:40 Calcium 9.3 (8.6-10.3) mg/dL Phosphorus 4.6 H (2.7-4.5) mg/dL Pituitary panel 09/08/17 Range/Units 05:40 Sodium 137 (136-145) mEq/L Potassium 3.7 (3.5-5.1) mEq/L Chloride 103 (98-107) mEq/L Carbon Dioxide 25 (23-29) mEq/L BUN 6 (6-20) mg/dL Creatinine 0.63 (0.60-1.20) mg/dL Glucose 112 H (70-105) mg/dL Calcium 9.3 (8.6-10.3) mg/dL Adrenal panel 09/08/17 Range/Units 05:40 Sodium 137 (136-145) mEq/L Potassium 3.7 (3.5-5.1) mEq/L Chloride 103 (98-107) mEq/L Carbon Dioxide 25 (23-29) mEq/L BUN 6 (6-20) mg/dL Creatinine 0.63 (0.60-1.20) mg/dL Glucose 112 H (70-105) mg/dL Calcium 9.3 (8.6-10.3) mg/dL Consult Discharge Plan - Plan Additional Instructions: 1. The patient can follow up in 2 weeks for a postoperative check. 2. She should slowly advance diet. 3. The patient should call for any fevers, chills, nausea, emesis, or uncontrolled pain. 4. Please provide a work excuse if necessary, but she can resume work whenever she feels ready. 5. Okay to remove scopalamine patchin 2-3 days. Referrals: Jaziel Arredondo MD [Primary Care Provider] - 09/19/17 9:00 am (2 weeks.) Prescriptions: Promethazine [Phenergan] 12.5 mg PO Q8HR PRN #15 tablet PRN Reason: Nausea Ondansetron [Zofran ODT] 8 mg SL Q6H PRN #30 tab PRN Reason: Nausea
[2017-09-08] MEDS: Sennosides/Docusate Sodium TABLET PO SCH (09:13)
[2017-09-08] MEDS: Bisacodyl 10 MG RECTAL SUPPOSITORY RC SCH (09:15)
[2017-09-08] MEDS ORDERED: Lidocaine -MPF 2% 2 ML VIAL ONE (09:27)
[2017-09-08] MEDS ORDERED: *HR* Propofol 200 MG/20 ML VIAL IVP ONE (09:27)
[2017-09-08] MEDS ORDERED: Tetracaine/Benzocaine/Butamben 200MG/SPRAY (100SPY/BOT) MM ONE (10:05)
--- NOTE | 2017-09-08 10:27 | Anesthesia Evaluation PreOp ---
Date of Encounter: 09/08/17 Time of Encounter: 10:25 - Past History Planned Operation: EGD Cardiac History: Denies any Significant Hx Pulmonary History: Denies Any Significant HX INFORMATION SECURITY ENGINEER History: Other (Migraines) Other Medical History: Denies Any Significant HX Anesthesia History: Past Anesthesia (Stone extraction) : No Test: Negative (09/01/2017) Alcohol Use: rarely Drug use: none Medications and Allergies [id number]/Iron Car/FA/Om3/Dha/Epa [One-A-Day 1 Dha Sfgl] 1 each PO DAILY 08/23/17 [History] Acetaminophen [Tylenol] 650 mg PO Q6HR PRN #20 tablet 08/28/17 [Rx] Cefdinir [Omnicef] 300 mg PO BID #20 capsule 08/28/17 [Rx] Docusate [Colace] 100 mg PO BID #60 capsule 09/01/17 [Rx] Oxycodone HCl/Acetaminophen [Percocet 5-325 mg Tablet] 1 each PO Q4H PRN 5 Days #15 tablet 09/01/17 [Rx] Phenazopyridine HCl [Pyridium] 200 mg PO TIDAC #12 tab 09/01/17 [Rx] Promethazine [Phenergan] 12.5 mg PO Q8HR PRN #10 tablet 09/02/17 [Rx] Ondansetron [Zofran ODT] 8 mg SL Q6H PRN #30 tab 09/06/17 [Rx] Promethazine [Phenergan] 12.5 mg PO Q8HR PRN #15 tablet 09/06/17 [Rx] 3 Allergy/AdvReac Type Severity Reaction Status Date / Time No Known Allergies Allergy Verified 09/01/17 13:00 - Meds/Allergy Pre-op Review Medications Reviewed: Yes Allergies Reviewed: Yes Beta Blockers on Current Med List: No Anesthesia Results - Labs 09/06/17 05:11 09/08/17 05:40 Anesthesia Exam Vital Signs/O2 Sat, Most Current Temp Pulse Resp BP Pulse Ox 98.4 F 104 16 148/98 97 09/08/17 10:15 09/08/17 10:15 09/08/17 10:15 09/08/17 10:15 09/08/17 10:15 NPO (# of Hours): > 8 hrs Pain Scale: 0 Pain Scale Used: Numeric (1 - 10) - HEENT Pupil (Motor): Pupils equal, EOMI Mallampati: II Teeth: Normal Oral Opening: Greater than 3 - INFORMATION SECURITY ENGINEER LOC: Oriented INFORMATION SECURITY ENGINEER Motor: Normal RUE, Normal LUE, Normal RLE, Normal LLE, Normal Face INFORMATION SECURITY ENGINEER Sensory: Normal: RUE, LUE, RLE, LLE, Face - Cardiac Rhythm: Regular Murmur: None JVD: No Carotid Bruit: No - Pulmonary Breath Sounds: bilateral Clear Respiratory Effort: Symmetrical Anesthesia Assess/Plan ASA Score: 2 Modified Holton Scale for Level of Consciousness: Cooperative, oriented, and tranquil Anesthetic Plan: MAC Autologous Blood: Yes Monitoring Plan: Standard Monitors Recovery Plan: Other
[2017-09-08] MEDS: Scopolamine Patch 1.5 MG PATCH.TD72 TD SCH (11:49)
--- NOTE | 2017-09-08 12:40 | Gastroenterology Consult Note ---
<Donald Harris - Last Filed: 09/08/17 12:38> Date of Encounter: 09/08/17 Time of Encounter: 11:25 - Assessment and plan (1) Nausea and vomiting Status: Acute Assessment and plan: EGD completed which showed esophageal ulcers, gastritis. Gastroparesis and suggestion of poor duodenal motility which may be secondary to narcotics. Recommend stopping all narcotics. Repeat EGD in 6 weeks to evaluate healing. Continue PPI and Carafate. Qualifiers: Vomiting Intractability: intractable Qualified Code(s): R11.2 - Nausea with vomiting, unspecified (2) Constipation Status: Acute Assessment and plan: Use MiraLAX up to twice a day. Give 2 tap water enemas. Qualifiers: Constipation type: unspecified constipation type Qualified Code(s): K59.00 - Constipation, unspecified (3) Kidney stone Status: Acute - Time Spent With Patient Total time spent is greater than 50% in coordination of care (as documented) at patient's floor/unit and/or counseling patient: GI History of Present Illness - Data of Consult Patient: new to practice Consult date: 09/08/17 Requesting Physician: Jaziel Arredondo, - Consult Narrative Reason for consult: Nausea and vomiting History of present illness: Ms. Cortés is a 31 year old female with PMHx of kidney stones who was admitted for nausea and vomiting after a left ureteroscopy, laser lithotripsy, and stent placement from 09/01/2017. Patient is not able to keep down any solid food, but has been able to drink liquid in limited amount. Zofran, Phenergan, Reglan, and scopolamine was initiated but patient does not have much relief. Patient complained of nausea, vomiting especially after solid food, heartburning , constipation. She had a distal left ureteral stone on a CT scan from earlier this week. Procedures: None NSAIDs: None Anticoagulation: None Past Med Surg Social Fam HX - Past Medical History Medical history: kidney stones, migraine Psychiatric history: no psych history - Past Surgical History Surgical History: no surgical history - Social History Smoking Status: Never smoker Smokeless Tobacco Status: No Alcohol use: rarely Drug use: none - Gastrointestinal Gastrointestinal: Present: as per HPI - Constitutional Constitutional: as per HPI - EENT Eyes: as per HPI Ears: Present: as per HPI Nose, mouth and throat: Present: as per HPI - Cardiovascular Cardiovascular ROS: Present: as per HPI - Respiratory Respiratory IM: Present: as per HPI - Genitourinary Genitourinary: Absent: change in color, Urinary frequency - Neurological ROS Neurological GI: Present: as per HPI - Hematologic/Lymphatic Hematologic/Lymphatic pediatric: Present: as per HPI - Musculoskeletal Musculoskeletal ROS GI: Present: as per HPI - Integumentary Integumentary GI: Present: as per HPI - Psychiatric ROS Psychiatric GI: Present: as per HPI - Endocrine Endocrine IM: Present: as per HPI - Constitutional Vitals: Temp Pulse Resp BP Pulse Ox 98.4 F 104 16 148/98 97 09/08/17 10:15 09/08/17 10:15 09/08/17 10:15 09/08/17 10:15 09/08/17 10:15 General appearance: Present: cooperative, A&O X 3, no acute distress, answers questions appropriately - Head Head exam: Present: atraumatic, normocephalic - Eye Eye exam: Present: normal appearance, sclera anicteric - ENT ENT exam: Present: mucous membranes dry - Neck Neck exam general surgery: Present: normal inspection, trachea midline - Respiratory Respiratory exam: Present: CTAB. Absent: rales, rhonchi - Cardiovascular Cardiovascular exam: Present: RRR, +S1, +S2 - GI/Abdominal GI/Abdominal exam: Present: soft, no peritoneal signs. Absent: distended, firm , guarding, tenderness - Rectal Rectal exam: Present: deferred - Extremities Exam Extremities exam: Present: warm - Neurological Exam Neurological exam: Present: no focal deficits - Psychiatric Psychiatric exam: Present: normal affect, normal mood - Skin Skin exam: Present: dry, intact, normal color, warm Results - Labs CBC & Chem 7: 09/06/17 05:11 09/08/17 05:40 Labs: Last Result Calcium 9.3 mg/dL (8.6-10.3) 09/08/17 05:40 Entire Visit Hgb 11.3 g/dL (11.5-15.4) L D 09/06/17 05:11 Hct 34.4 % (35.3-44.9) L 09/06/17 05:11 - Impressions Impressions Abdomen/Pelvis CT 09/08/17 07:08 IMPRESSION: No hydronephrosis is identified. The ureteral stent seen on the previous examination has been removed. Decreased perinephric inflammatory change on the left. No new acute abnormality is identified. D/ / Aquilino Aranda MD / Aquilino Aranda MD Interpreting Provider: Aquilino Aranda MD Consult Discharge Plan - Plan Instructions: Lithotripsy for Removal of Kidney Stones (DC) Additional Instructions: 1. The patient can follow up in 2 weeks for a postoperative check. 2. She should slowly advance diet. 3. The patient should call for any fevers, chills, nausea, emesis, or uncontrolled pain. 4. Please provide a work excuse if necessary, but she can resume work whenever she feels ready. 5. Okay to remove scopalamine patchin 2-3 days. Referrals: Lul Winslow MD [Partnered Physician] - (in 4-6 weeks for recheck. Web request entered, office will call with date and time of appt. thank you.) Jaziel Arredondo MD [Primary Care Provider] - 09/19/17 9:00 am (2 weeks.) Prescriptions: Metoclopramide [Reglan] 5 mg PO QIDAC #120 tablet Omeprazole [PriLOSEC] 20 mg PO BIDAC #60 capsule. Ondansetron [Zofran ODT] 8 mg SL Q6H PRN #30 tab PRN Reason: Nausea Sucralfate [Carafate] 1 gm PO QIDAC #120 tablet <Lul Winslow - Last Filed: 09/13/17 06:07> Date of Encounter: 09/08/17 - Time Spent With Patient Total time spent is greater than 50% in coordination of care (as documented) at patient's floor/unit and/or counseling patient: GI History of Present Illness - Data of Consult Requesting Physician: Pedro Almazan MD - Consult Narrative History of present illness: Ms. Cortés is a 31 year old female - Constitutional Vitals: Temp Pulse Resp BP Pulse Ox 98.8 F 108 16 123/88 97 09/11/17 10:57 09/11/17 10:57 09/11/17 10:57 09/11/17 10:57 09/11/17 10:57 Results - Labs CBC & Chem 7: 09/11/17 04:46 09/11/17 04:46 Labs: Last Result Calcium 9.6 mg/dL (8.6-10.3) 09/11/17 04:46 Entire Visit Hgb 11.8 g/dL (11.5-15.4) 09/11/17 04:46 Hct 36.2 % (35.3-44.9) 09/11/17 04:46 - Attending Attestation Very pleasant young lady who presented with urolithiasis. This problem has resolved. Patient has nausea and vomiting secondary to gastroparesis and obstipation secondary to narcotics which have been stopped. Plan enemas and possibly hypaque enema if, not resolved. I have personally performed a face to face evaluation on this patient. I have reviewed and agree with the care plan. History and Exam by me shows:
--- NOTE | 2017-09-08 14:39 | Internal Med Progress Note ---
Date of Encounter: 09/08/17 Time of Encounter: 14:36 - Assessment and plan (1) Nausea and vomiting Current Visit: Yes Status: Acute Assessment and plan: Persistent postsurgical nausea and vomiting. Reports that she last vomited blood/today, she has been able to tolerate oral intake since her surgery this past Monday. Additionally, she is reporting constipation. No acute abdominal findings prior examination. GI consulted and has seen the patient today. EGD completed which showed esophageal ulcers and gastritis. Additionally there is Gastroparesis and suggestion of poor duodenal motility which is likely secondary to narcotic use. She is recommended to have a repeat EGD in 6 weeks to evaluate healing Continue antiemetics Continue Carafate Continue PPI Narcotics have been discontinued CBC D and BMP in the morning Once she is able to tolerate a diet she should be medically stable for discharge from my standpoint. Hospitalist will continue to follow. Qualifiers: Vomiting Intractability: intractable Qualified Code(s): R11.2 - Nausea with vomiting, unspecified (2) Status post laser lithotripsy of ureteral calculus Current Visit: Yes Status: Acute Assessment and plan: Patient reports no difficulty voiding. Renal function unremarkable . Today's labs with a normal BUN, creatinine and GFR. There was some concern about a 3 mm stone in the distal left ureter causing mild left hydroureter and left hydronephrosis, however repeat CT of abdomen and pelvis today does not demonstrate any hydronephrosis, and no stone is seen per my review of imaging. Continue to follow with urology (3) Constipation Current Visit: Yes Status: Acute Assessment and plan: Likely secondary to narcotic use. She still has not had a bowel movement. Bowel sounds are hypoactive, abdominal exam is nonacute. EGD today shows gastroparesis and delayed gastric motility Discontinue use of narcotics MiraLAX bowel prep twice a day GI has recommended to tap water enemas Qualifiers: Constipation type: unspecified constipation type Qualified Code(s): K59.00 - Constipation, unspecified - Time Spent With Patient Total time spent is greater than 50% in coordination of care (as documented) at patient's floor/unit and/or counseling patient: Greater than 35 minutes - Subjective Interval history: Ms. disla to 31-year-old female who was admitted due to a recent left uteroscopy, S/P left ureteral stent placement and laser lithotripsy this past Monday. She was admitted this past Monday under urology service is due for evaluation of persistent nausea and vomiting S/P surgery. Patient denies any new complaints overnight. She is continuing to endorse nausea and vomiting, reporting that she last vomited with lunch. She states that she is still unable to tolerate solids or liquids. She reports that the antiemetics are not helping. She denies any abdominal pain and is reporting that she is passing gas but is still not had a bowel movement Additionally, she reports that she has good urinary output. She denies any suprapubic or flank pain She denies any fevers, or chills - Constitutional Vitals: Temp Pulse Resp BP Pulse Ox 98.4 F 104 16 148/98 97 09/08/17 10:15 09/08/17 10:15 09/08/17 10:15 09/08/17 10:15 09/08/17 10:15 General appearance: Present: cooperative, mild distress, A&O X 3 - Respiratory Respiratory exam: Present: CTAB. Absent: accessory muscle use, rales, rhonchi, wheezes - Cardiovascular Cardiovascular exam: Present: RRR, +S1, +S2. Absent: diastolic murmur, gallop, rubs, systolic murmur - GI/Abdominal GI/Abdominal exam: Present: hypoactive bowel sounds. Absent: tenderness - Extremities Exam Extremities exam: Present: warm, radial pulses palpable and symmetrical. Absent : calf tenderness, cyanotic, pedal edema - Back Exam Back exam: Absent: CVA tenderness (L), CVA tenderness (R) - Neurological Exam Neurological exam: Present: alert, oriented X3. Absent: facial droop, speech deficit - Skin Skin exam: Present: dry, intact Internal Medicine: Result - Labs CBC & Chem 7: 09/06/17 05:11 09/08/17 05:40 Labs: BMP 09/08/17 05:40 Sodium 137 Potassium 3.7 Chloride 103 Carbon Dioxide 25 BUN 6 Creatinine 0.63 Glucose 112 H Calcium 9.3 - Impressions Impressions Abdomen/Pelvis CT 09/08/17 07:08 IMPRESSION: No hydronephrosis is identified. The ureteral stent seen on the previous examination has been removed. Decreased perinephric inflammatory change on the left. No new acute abnormality is identified. D/ / Aquilino Aranda MD / Aquilino Aranda MD Interpreting Provider: Aquilino Aranda MD Consult Discharge Plan - Plan Additional Instructions: 1. The patient can follow up in 2 weeks for a postoperative check. 2. She should slowly advance diet. 3. The patient should call for any fevers, chills, nausea, emesis, or uncontrolled pain. 4. Please provide a work excuse if necessary, but she can resume work whenever she feels ready. 5. Okay to remove scopalamine patchin 2-3 days. Referrals: Jaziel Arredondo MD [Primary Care Provider] - 09/19/17 9:00 am (2 weeks.) Prescriptions: Promethazine [Phenergan] 12.5 mg PO Q8HR PRN #15 tablet PRN Reason: Nausea Ondansetron [Zofran ODT] 8 mg SL Q6H PRN #30 tab PRN Reason: Nausea
[2017-09-09] MEDS: Metoclopramide 20 MG in 0.9 % Sodium Chloride 50 ML IVPB SCH ×2 (01:42→09:25)
[2017-09-09] MEDS: *HR* Promethazine 25 MG/ML VIAL IVP PRN ×2 (08:05→22:51)
[2017-09-09] MEDS: Bisacodyl 10 MG RECTAL SUPPOSITORY RC SCH (08:07)
[2017-09-09] MEDS: Sennosides/Docusate Sodium TABLET PO SCH (08:07)
[2017-09-09] MEDS: D5% in 0.45% NACL w KCl 20 MEQ/1,000 ML MLS IVC SCH ×3 (08:08→18:36)
--- NOTE | 2017-09-09 09:45 | Urology Progress Note ---
Date of Encounter: 09/09/17 Time of Encounter: 09:43 - Assessment and Plan (1) Ureteral stone Current Visit: Yes Status: Resolved Assessment and plan: recent CT scan confirmed the stone had passed. no further issues or intervention required. will follow bc on service. If intractable N/V continues will ask for transfer to hospitalists service (2) Nausea and vomiting Current Visit: Yes Status: Acute Assessment and plan: GI to reevaluate today Qualifiers: Vomiting Intractability: intractable Qualified Code(s): R11.2 - Nausea with vomiting, unspecified Progress Note Subjective: nausea, vomiting Narrative: no improvement in N/V. unable to tolerate PO intake. Objective Initial Vital Signs Temp Pulse Resp BP Pulse Ox 98.8 F 74 16 127/87 100 09/05/17 09:54 09/05/17 09:54 09/05/17 09:54 09/05/17 09:54 09/05/17 09:54 - General physical appearance Present: no distress - Abdomen Present: soft - Labs 09/06/17 05:11 09/08/17 05:40 Consult Discharge Plan - Plan Additional Instructions: 1. The patient can follow up in 2 weeks for a postoperative check. 2. She should slowly advance diet. 3. The patient should call for any fevers, chills, nausea, emesis, or uncontrolled pain. 4. Please provide a work excuse if necessary, but she can resume work whenever she feels ready. 5. Okay to remove scopalamine patchin 2-3 days. Referrals: Jaziel Arredondo MD [Primary Care Provider] - 09/19/17 9:00 am (2 weeks.) Prescriptions: Promethazine [Phenergan] 12.5 mg PO Q8HR PRN #15 tablet PRN Reason: Nausea Ondansetron [Zofran ODT] 8 mg SL Q6H PRN #30 tab PRN Reason: Nausea
[2017-09-09] MEDS ORDERED: Lidocaine Viscous Oral Soln 15 ML SOLUTION MM PRN (09:52)
[2017-09-09] MEDS ORDERED: GI Cocktail 40 ML EACH PO ONE (09:53)
[2017-09-09] MEDS: Ondansetron 4 MG/2 ML VIAL IVP PRN ×2 (10:18→21:13)
[2017-09-09] MEDS: Metoclopramide 10 MG/2 ML VIAL IVP SCH ×3 (11:17→22:57)
--- NOTE | 2017-09-09 11:45 | Gastroenterology Progress Note ---
Date of Encounter: 09/09/17 Time of Encounter: 10:25 - Time Spent With Patient Total time spent is greater than 50% in coordination of care (as documented) at patient's floor/unit and/or counseling patient: - Subjective Interval history: Ms. disla to 31-year-old female who was admitted due to a recent left uteroscopy, S/P left ureteral stent placement and laser lithotripsy this past Monday. She was admitted this past Monday under urology service is due for evaluation of persistent nausea and vomiting S/P surgery. Patient denies any new complaints overnight. She is continuing to endorse nausea and vomiting, reporting that she last vomited with lunch. She states that she is still unable to tolerate solids or liquids. She reports that the antiemetics are not helping. She denies any abdominal pain and is reporting that she is passing gas but is still not had a bowel movement Additionally, she reports that she has good urinary output. She denies any suprapubic or flank pain She denies any fevers, or chills Patient needs to be nothing by mouth for now until she has a bowel movement - soapsuds enema yesterday and did not have any bowel movements. Today would recommend that she undergo a get 3 mineral oil mineral oil enemas 200 mL each every 2 hours 3 the use of stool softeners and) and hopefully once her bowels start moving her nausea and vomiting resolve. She has not had a bowel movement in several days Patient is very sensitive to narcotics with respect to her gut. Discussed all this with the patient will make further recommendations; as we go along Endoscopy SA showed the presence of esophageal ulcers and gastroparesis. So it could be from the vomiting is especially has significant underlying reflux although she is does not have Any significant symptoms in the interval. Recommend aggressive antireflux therapy with proton pump inhibitor as well as antireflux measures and lifestyle changes Hopefully her problems are resolved today I will make further recommendations - Constitutional Vitals: Temp Pulse Resp BP Pulse Ox 98.3 F 85 16 103/69 97 09/09/17 07:19 09/09/17 07:19 09/09/17 07:19 09/09/17 07:19 09/09/17 07:19 General appearance: Present: cooperative, A&O X 3, no acute distress, answers questions appropriately Results - Labs CBC & Chem 7: 04/18/18 05:11 09/08/17 05:40 Labs: Last Result Calcium 9.3 mg/dL (8.6-10.3) 09/08/17 05:40 Entire Visit Hgb 11.3 g/dL (11.5-15.4) L D 09/06/17 05:11 Hct 34.4 % (35.3-44.9) L 09/06/17 05:11 Consult Discharge Plan - Plan Additional Instructions: 1. The patient can follow up in 2 weeks for a postoperative check. 2. She should slowly advance diet. 3. The patient should call for any fevers, chills, nausea, emesis, or uncontrolled pain. 4. Please provide a work excuse if necessary, but she can resume work whenever she feels ready. 5. Okay to remove scopalamine patchin 2-3 days. Referrals: Jaziel Arredondo MD [Primary Care Provider] - 09/19/17 9:00 am (2 weeks.) Prescriptions: Promethazine [Phenergan] 12.5 mg PO Q8HR PRN #15 tablet PRN Reason: Nausea Ondansetron [Zofran ODT] 8 mg SL Q6H PRN #30 tab PRN Reason: Nausea
--- NOTE | 2017-09-09 12:00 | Event Note ---
Date of Encounter: 09/09/17 Time of Encounter: 11:[address] Almazan. will transfer to hospitalists service.
--- NOTE | 2017-09-09 14:16 | Internal Med Progress Note ---
Date of Encounter: 09/09/17 Time of Encounter: 10:15 - Assessment and plan (1) Esophageal ulcer Current Visit: Yes Status: Acute Assessment and plan: Will place patient on twice daily PPI. Continue Carafate. Avoid NSAIDs. Viscous lidocaine as needed for symptom relief. IV fluids. DVT prophylaxis with SCDs Qualifiers: Esophageal ulcer bleeding: without bleeding Qualified Code(s): K22.10 - Ulcer of esophagus without bleeding (2) Nausea and vomiting Current Visit: Yes Status: Acute Assessment and plan: Likely from gastroparesis per EGD findings. We will change Reglan to IV push and schedule it every 6 hours. Continue antiemetics as needed. Qualifiers: Vomiting Intractability: intractable Qualified Code(s): R11.2 - Nausea with vomiting, unspecified (3) Status post laser lithotripsy of ureteral calculus Current Visit: Yes Status: Acute Assessment and plan: No calculus per CT done yesterday. Ureteral stent has been removed. (4) Constipation Current Visit: Yes Status: Acute Assessment and plan: Continue laxatives. Gastroenterology following. They have ordered enemas. Qualifiers: Constipation type: unspecified constipation type Qualified Code(s): K59.00 - Constipation, unspecified (5) Gastroparesis Current Visit: Yes Status: Acute Assessment and plan: Continue Reglan. - Time Spent With Patient Total time spent is greater than 50% in coordination of care (as documented) at patient's floor/unit and/or counseling patient: - Subjective Interval history: Patient complains of continued nausea. Abdominal pain is improved. She did have a small bowel movement yesterday. With a minimum but since then has not had any more episodes. No hematemesis or melena. No dysuria or flank pain. - Constitutional Vitals: Temp Pulse Resp BP Pulse Ox 98.6 F 100 16 123/83 98 09/09/17 11:53 09/09/17 11:53 09/09/17 11:53 09/09/17 11:53 09/09/17 11:53 General appearance: Present: cooperative, mild distress, A&O X 3 - Neck Neck exam general surgery: Present: supple, trachea midline. Absent: lymphadenopathy - Respiratory Respiratory exam: Present: CTAB. Absent: accessory muscle use, rales, rhonchi, wheezes - Cardiovascular Cardiovascular exam: Present: RRR, +S1, +S2. Absent: diastolic murmur, gallop, rubs, systolic murmur - GI/Abdominal GI/Abdominal exam: Present: diminished bowel sounds, soft, no peritoneal signs. Absent: distended, tenderness - Extremities Exam Extremities exam: Present: warm, radial pulses palpable and symmetrical. Absent : calf tenderness, cyanotic, pedal edema - Neurological Exam Neurological exam: Present: CN II-XII intact, oriented X3, no focal deficits. Absent: pronater drift, facial droop, speech deficit Internal Medicine: Result - Labs CBC & Chem 7: 09/06/17 05:11 09/08/17 05:40 Consult Discharge Plan - Plan Additional Instructions: 1. The patient can follow up in 2 weeks for a postoperative check. 2. She should slowly advance diet. 3. The patient should call for any fevers, chills, nausea, emesis, or uncontrolled pain. 4. Please provide a work excuse if necessary, but she can resume work whenever she feels ready. 5. Okay to remove scopalamine patchin 2-3 days. Referrals: Jaziel Arredondo MD [Primary Care Provider] - 09/19/17 9:00 am (2 weeks.) Prescriptions: Promethazine [Phenergan] 12.5 mg PO Q8HR PRN #15 tablet PRN Reason: Nausea Ondansetron [Zofran ODT] 8 mg SL Q6H PRN #30 tab PRN Reason: Nausea
[2017-09-09] MEDS: Pantoprazole 40 MG VIAL IVP SCH (17:11)
[2017-09-09] MEDS ORDERED: Milk and Molasses Enema 200 ML RC ONE (18:26)
[2017-09-10] MEDS: Ondansetron 4 MG/2 ML VIAL IVP PRN (04:17)
[2017-09-10] MEDS: D5% in 0.45% NACL w KCl 20 MEQ/1,000 ML MLS IVC SCH ×2 (05:45→15:43)
[2017-09-10] MEDS: Metoclopramide 10 MG/2 ML VIAL IVP SCH ×2 (05:46→13:10)
[2017-09-10] MEDS: Pantoprazole 40 MG VIAL IVP SCH ×2 (05:53→17:46)
[2017-09-10] MEDS: *HR* Promethazine 25 MG/ML VIAL IVP PRN (08:02)
[2017-09-10] MEDS: Sennosides/Docusate Sodium TABLET PO SCH (08:02)
[2017-09-10] MEDS: Bisacodyl 10 MG RECTAL SUPPOSITORY RC SCH (08:08)
--- NOTE | 2017-09-10 09:15 | Urology Progress Note ---
Date of Encounter: 09/10/17 Time of Encounter: 09:14 - Assessment and Plan (1) Ureteral stone Current Visit: Yes Status: Resolved (2) Nausea and vomiting Current Visit: Yes Status: Acute Assessment and plan: still an issue. pt denies any symptoms/flank pain. pt now on hospitalists service. GI still following. pt states no needs at this time. Qualifiers: Vomiting Intractability: intractable Qualified Code(s): R11.2 - Nausea with vomiting, unspecified Progress Note Narrative: pt transferred to hospitalist service. pt reports only minimal improvement but still had vomiting episode overnight. tolerated some PO Objective Initial Vital Signs Temp Pulse Resp BP Pulse Ox 98.8 F 74 16 127/87 100 09/05/17 09:54 09/05/17 09:54 09/05/17 09:54 09/05/17 09:54 09/05/17 09:54 - General physical appearance Present: no distress - Labs 09/06/17 05:11 09/08/17 05:40 Consult Discharge Plan - Plan Additional Instructions: 1. The patient can follow up in 2 weeks for a postoperative check. 2. She should slowly advance diet. 3. The patient should call for any fevers, chills, nausea, emesis, or uncontrolled pain. 4. Please provide a work excuse if necessary, but she can resume work whenever she feels ready. 5. Okay to remove scopalamine patchin 2-3 days. Referrals: Jaziel Arredondo MD [Primary Care Provider] - 09/19/17 9:00 am (2 weeks.) Prescriptions: Promethazine [Phenergan] 12.5 mg PO Q8HR PRN #15 tablet PRN Reason: Nausea Ondansetron [Zofran ODT] 8 mg SL Q6H PRN #30 tab PRN Reason: Nausea
--- NOTE | 2017-09-10 14:56 | Internal Med Progress Note ---
Date of Encounter: 09/10/17 Time of Encounter: 09:45 - Assessment and plan (1) Esophageal ulcer Current Visit: Yes Status: Acute Assessment and plan: Continue Protonix and Carafate. Symptoms are improving. Qualifiers: Esophageal ulcer bleeding: without bleeding Qualified Code(s): K22.10 - Ulcer of esophagus without bleeding (2) Nausea and vomiting Current Visit: Yes Status: Acute Assessment and plan: Nausea improving. We will change Reglan to oral dose. Due to gastroparesis. Avoid narcotic agents. Qualifiers: Vomiting Intractability: intractable Qualified Code(s): R11.2 - Nausea with vomiting, unspecified (3) Status post laser lithotripsy of ureteral calculus Current Visit: Yes Status: Resolved (4) Constipation Current Visit: Yes Status: Acute Assessment and plan: GI following. Has not had bowel movement despite intravenous yesterday. KUB x- ray shows small amount of stool in the right side of the colon. Ordered magnesium citrate. If no bowel movements, may need barium enema. Qualifiers: Constipation type: unspecified constipation type Qualified Code(s): K59.00 - Constipation, unspecified (5) Gastroparesis Current Visit: Yes Status: Acute Assessment and plan: Continue Reglan - Time Spent With Patient Total time spent is greater than 50% in coordination of care (as documented) at patient's floor/unit and/or counseling patient: - Subjective Interval history: Patient reports that her nausea is better. She has not had a bowel movement yet. Tolerating clear liquids. No abdominal pain. - Constitutional Vitals: Temp Pulse Resp BP Pulse Ox 98.4 F 100 16 108/72 97 09/10/17 11:54 09/10/17 11:54 09/10/17 11:54 09/10/17 11:54 09/10/17 11:54 General appearance: Present: cooperative, mild distress, A&O X 3 - Neck Neck exam general surgery: Present: supple, trachea midline. Absent: lymphadenopathy - Respiratory Respiratory exam: Present: CTAB. Absent: accessory muscle use, rales, rhonchi, wheezes - Cardiovascular Cardiovascular exam: Present: RRR, +S1, +S2. Absent: diastolic murmur, gallop, rubs, systolic murmur - GI/Abdominal GI/Abdominal exam: Present: normal bowel sounds, soft, no peritoneal signs. Absent: distended, tenderness - Extremities Exam Extremities exam: Present: warm, radial pulses palpable and symmetrical. Absent : calf tenderness, cyanotic, pedal edema - Neurological Exam Neurological exam: Present: alert, oriented X3, no focal deficits. Absent: facial droop, speech deficit - Skin Skin exam: Present: dry, intact Internal Medicine: Result - Labs CBC & Chem 7: 09/06/17 05:11 09/08/17 05:40 - Impressions Impressions KUB X-Ray 09/10/17 13:12 IMPRESSION: Unremarkable appearing abdomen. D/ /10/2017 14:10:37 Donald Euceda MD / Thais Wallace Interpreting Provider: Donald Euceda MD Consult Discharge Plan - Plan Additional Instructions: 1. The patient can follow up in 2 weeks for a postoperative check. 2. She should slowly advance diet. 3. The patient should call for any fevers, chills, nausea, emesis, or uncontrolled pain. 4. Please provide a work excuse if necessary, but she can resume work whenever she feels ready. 5. Okay to remove scopalamine patchin 2-3 days. Referrals: Jaziel Arredondo MD [Primary Care Provider] - 09/19/17 9:00 am (2 weeks.) Prescriptions: Promethazine [Phenergan] 12.5 mg PO Q8HR PRN #15 tablet PRN Reason: Nausea Ondansetron [Zofran ODT] 8 mg SL Q6H PRN #30 tab PRN Reason: Nausea
[2017-09-11 05:11] LABS: Basophils # 0.1 K/mcL (0.0-0.2); Basophils % 1.1 %; Eosinophils # 0.3 K/mcL (0.0-0.6); Eosinophils % 2.4 %; Hematocrit 36.2 % (35.3-44.9); Hemoglobin 11.8 g/dL (11.5-15.4); Immature Granulocytes % 0.3 % (0-4); Lymphocytes # 3.5 K/mcL (0.6-4.6); Lymphocytes % 30.9 %; Mean Corpuscular HGB Conc 32.6 g/dL (31.6-35.5); Mean Corpuscular Hemoglobin 29.9 pg (28.0-33.3); Mean Corpuscular Volume 91.6 fL (83.0-100.0); Mean Platelet Volume 9.4 fL (9.4-12.4); Monocytes # 1.3 K/mcL (0.0-1.3); Neutrophils # 6.2 K/mcL (1.6-8.9); Platelet Count 341 K/mcL (140-400); Red Blood Count 3.95 M/mcL (3.82-4.97); Red Cell Distribution Width 12.7 % (11.5-14.5); Segmented Neutrophils % 54.3 %
[2017-09-11 05:36] LABS: BUN/Creatinine Ratio 12 (6-26); Blood Urea Nitrogen 8 mg/dL (6-20); Calcium 9.6 mg/dL (8.6-10.3); Carbon Dioxide 26 mEq/L (23-29); Chloride 101 mEq/L (98-107); Glucose 98 mg/dL (70-105); Osmolality,Calculated 284 (280-300); Potassium 4.2 mEq/L (3.5-5.1); Sodium 138 mEq/L (136-145); eGFR For African Americans > 60 (> 60); eGFR For Non-African Americans > 60 (> 60)
[2017-09-11] MEDS: Sennosides/Docusate Sodium TABLET PO SCH (08:35)
[2017-09-11] MEDS: Bisacodyl 10 MG RECTAL SUPPOSITORY RC SCH (08:35)
--- NOTE | 2017-09-11 09:25 | Discharge Summary ---
- NOTES TO OUTPATIENT PROVIDER Notes to Outpatient Provider: Patient initially admitted for Distal left ureter stone with mild left hydroureter and left hydronephrosis. She underwent left ureteroscopy, laser lithotripsy previously. She was treated symptomatically and appears to have passed her stone. She continued to have intractable nausea and vomiting. GI was consulted and patient underwent upper GI endoscopy was found to have esophageal ulcers and gastroparesis. She was then treated for these conditions with good improvement in her symptoms. Stable for discharge at this time Orders not resulted at time of discharge: Pending orders 09/08/17 10:39 Surgical Pathology [PTH] Routine Date of Encounter: 09/11/17 Time of Encounter: 09:22 - Discharge Diagnosis (1) Esophageal ulcer Priority: Primary Status: Acute Qualifiers: Esophageal ulcer bleeding: without bleeding Qualified Code(s): K22.10 - Ulcer of esophagus without bleeding (2) Nausea and vomiting Priority: Secondary Status: Acute Qualifiers: Vomiting type: cyclical vomiting Vomiting Intractability: intractable Qualified Code(s): G43.A1 - Cyclical vomiting, intractable (3) Status post laser lithotripsy of ureteral calculus Priority: Secondary Status: Resolved (4) Constipation Priority: Secondary Status: Resolved Qualifiers: Constipation type: unspecified constipation type Qualified Code(s): K59.00 - Constipation, unspecified (5) Gastroparesis Priority: Secondary Status: Acute Hospital course: Ms. Cortés is a 31 year old female patient initially admitted for Distal left ureter stone with mild left hydroureter and left hydronephrosis. She underwent left ureteroscopy, laser lithotripsy previously. She was treated symptomatically and appears to have passed her stone. She continued to have intractable nausea and vomiting. GI was consulted and patient underwent upper GI endoscopy was found to have esophageal ulcers and gastroparesis. She was then treated for these conditions with good improvement in her symptoms. She also had constipation and was treated with multiple any mass and pain medications with resolution of constipation. She is now stable for discharge home. She will follow up with GI as outpatient for repeat upper GI endoscopy check healing. She will be discharged on PPI and Carafate. I will also place her on Reglan for gastroparesis. Most likely her gastroparesis was due to narcotic use. Discharge discussed with: patient, nurse - Time Spent with Patient Total time spent providing and/or coordinating discharge services: Less than 30 minutes (25 min) - Discharge Medications Prescriptions: Metoclopramide [Reglan] 5 mg PO QIDAC #120 tablet Omeprazole [PriLOSEC] 20 mg PO BIDAC #60 capsule. Ondansetron [Zofran ODT] 8 mg SL Q6H PRN #30 tab PRN Reason: Nausea Sucralfate [Carafate] 1 gm PO QIDAC #120 tablet Home Medications: [id number]/Iron Car/FA/Om3/Dha/Epa [One-A-Day 1 Dha Sfgl] 1 each PO DAILY 08/23/17 [History] Acetaminophen [Tylenol] 650 mg PO Q6HR PRN #20 tablet 08/28/17 [Rx] Cefdinir [Omnicef] 300 mg PO BID #20 capsule 08/28/17 [Rx] Docusate [Colace] 100 mg PO BID #60 capsule 09/01/17 [Rx] Phenazopyridine HCl [Pyridium] 200 mg PO TIDAC #12 tab 09/01/17 [Rx] Promethazine [Phenergan] 12.5 mg PO Q8HR PRN #10 tablet 09/02/17 [Rx] Ondansetron [Zofran ODT] 8 mg SL Q6H PRN #30 tab 09/06/17 [Rx] Metoclopramide [Reglan] 5 mg PO QIDAC #120 tablet 09/11/17 [Rx] Omeprazole [PriLOSEC] 20 mg PO BIDAC #60 capsule. 09/11/17 [Rx] Sucralfate [Carafate] 1 gm PO QIDAC #120 tablet 09/11/17 [Rx] Allergies/Adverse Reactions: 3 Allergy/AdvReac Type Severity Reaction Status Date / Time No Known Allergies Allergy Verified 09/01/17 13:00 Date of admission: 09/10/17 15:03 Primary care physician: Jaziel Arredondo, Consults: 09/07/17 12:41 Consult to Hospitalist [CONS] Routine Consulting Provider: Hospitalist Micaela Reason for Consult: Prolonged nausea and emesis Call Completed: No 09/07/17 17:32 Consult to Gastroenterology [CONS] Routine Consulting Provider: Gastroenterology Tessa Reason for Consult: Intractable nausea vomiting Call Completed: No Discharging clinician: Pedro Almazan Anticipated date of discharge: 09/11/17 - Constitutional Vitals: Temp Pulse Resp BP Pulse Ox 98.6 F 97 16 100/67 96 09/11/17 06:53 09/11/17 06:53 09/11/17 06:53 09/11/17 06:53 09/11/17 06:53 General appearance: Present: cooperative, A&O X 3, no acute distress, obese, answers questions appropriately - Respiratory Respiratory exam: Present: CTAB. Absent: accessory muscle use, rales, rhonchi, wheezes - Cardiovascular Cardiovascular exam: Present: RRR, +S1, +S2. Absent: diastolic murmur, gallop, rubs, systolic murmur - GI/Abdominal GI/Abdominal exam: Present: normal bowel sounds, soft, no peritoneal signs. Absent: distended, tenderness - Extremities Exam Extremities exam: Present: warm, radial pulses palpable and symmetrical. Absent : calf tenderness, cyanotic, pedal edema - Patient Status Disposition: Home, Self-Care Condition: Good Functional capacity at discharge: independent ambulation Overall status at discharge: patient is progressing back to baseline - Discharge Instructions Instructions: Lithotripsy for Removal of Kidney Stones (DC) Follow Up With: Lul Winslow MD [Partnered Physician] - (in 4-6 weeks for recheck. Web request entered, office will call with date and time of appt. thank you.) Jaziel Arredondo MD [Primary Care Provider] - 09/19/17 9:00 am (2 weeks.) Forms: Inpatient Work/School Release Additional Instructions: 1. The patient can follow up in 2 weeks for a postoperative check. 2. She should slowly advance diet. 3. The patient should call for any fevers, chills, nausea, emesis, or uncontrolled pain. 4. Please provide a work excuse if necessary, but she can resume work whenever she feels ready. 5. Okay to remove scopalamine patchin 2-3 days. - Diet and Activity Activity: increase activity as tolerated Diet: low fat, low cholesterol, low salt diet
[2017-09-11 10:58] VITALS: BP 123/88
[2017-09-11] MEDS: Scopolamine Patch 1.5 MG PATCH.TD72 TD SCH (12:15)
== END 2017-09-11 16:00 | disposition home or self-care (01) ==
LOC: 3ANU → SUATTDRO 08:38
PROVIDERS: ADMIT Urology; ATTEND Internal Medicine
PROC: ENDOEBX (2017-09-08 10:30)